=== PATIENT | female | born 1950 | race Caucasian/White ===

== ENCOUNTER 2021-01-16 14:11 | Inpatient (IN) | payer MEDICARE, OTHER ==
[~2021-01-16] VITALS: Ht 170.2 cm; Wt 65.8 kg
[~2021-01-16 14:11] MED LIST: ACET325 PO; ALBU90OI INH; AMLO5 PO; ASPI325 PO; ATIVAN; ATOR10 PO; ATOR40TA PO; AZIT250 PO; AZIT500 PO; BENAML10/2; BENZ1 PO; BENZ100A PO; CEPH500 PO; DOXY100 PO; ESTNOR; ESTNOR PO; FAMO20; FAMO20 PO; GUAPHELA PO; HALO2 PO; HALO5 PO; HYDACE5 PO; HYDHOMSY PO; LAMO100; LAMO100 PO; LAMO25; LAMO25 PO; LETR2.5 PO; LEVFLO500 PO; LITH300C; LOPE2C PO; LORA1; LORA1 PO; LORA2 PO; MECL12.5 PO; MECL25 PO; MELA3 PO; MIRT30 PO; MOME.1TC TOP; MONT5TCH PO; NAPR500 PO; NEW BP MED; NITR100CA PO; Norvasc PO; OMEPRAZOLE; PIOG15; PIOG15 PO; PRAZ1; PRAZ1 PO; PRED20 PO; PRENZ; PROP80ER PO; RAMI1.25; RAMI1.25 PO; RANI150; RESPIRIDAL PO; RISP.25; RISP2; RISP2 PO; RISP4 PO; RISPERDAL; TAMS.4ER PO; TRAZ100 PO; TRAZ50 PO; ZIPR80 PO; [UNRECOGNIZED DRUG - REMARK]; [UNRECOGNIZED DRUG - REMARK]; [UNRECOGNIZED DRUG - REMARK]; [UNRECOGNIZED DRUG - REMARK]; [UNRECOGNIZED DRUG - REMARK]
[2021-01-16 15:12] LABS: BASOPHILS ABSOLUTE AUTO 0.02 K/mm3 (0.00-0.23); BASOPHILS PERCENT AUTO 0 % (0-2); EOSINOPHILS PERCENT AUTO 0 % (0-6); Hematocrit 30.4 % (33.0-51.0); Hemoglobin 9.5 g/dL (11.5-16.0); IMMATURE GRAN ABSOLUTE AUTO 0.02 K/mm3 (0.00-0.10); IMMATURE GRAN PERCENT AUTO 0 % (0-1); LYMPHOCYTES ABSOLUTE AUTO 2.24 K/mm3 (0.84-5.20); LYMPHOCYTES PERCENT AUTO 22 % (21-46); MONOCYTES ABSOLUTE AUTO 0.88 K/mm3 (0.16-1.47); MONOCYTES PERCENT AUTO 8 % (4-13); Mean Corpuscular HGB 29.2 pg (26.0-34.0); Mean Corpuscular HGB Conc 31.3 g/dL (31.5-36.5); Mean Corpuscular Volume 94 fL (80-100); Mean Platelet Volume 10.2 fL (9.1-12.4); NEUTROPHILS ABSOLUTE AUTO 7.27 K/mm3 (1.96-9.15); NEUTROPHILS PERCENT AUTO 70 % (41-73); Platelet Count 267 K/mm3 (150-400); RDW Coefficient Variation 14.8 % (11.7-14.2); RDW Standard Deviation 50.5 fL (35.1-46.3); Red Blood Cell Count 3.25 M/mm3 (3.80-5.20); White Blood Cell Count 10.43 K/mm3 (4.00-11.30)
[2021-01-16 15:24] LABS: Alanine Aminotransfer (ALT/SGP 28 U/L (12-78); Albumin/Globulin Ratio 0.7 (0.8-1.8); Alk Phos 345 U/L (50-136); Anion Gap 8 mmol/L (6-16); Aspartate Aminotrans (AST/SGOT 66 U/L (12-37); Bilirubin, Total 0.7 mg/dL (0.1-1.0); Blood Urea Nitrogen 48 mg/dL (8-24); Bun/Creatinine Ratio 19.7 (12.0-20.0); CO2, Blood 23 mmol/L (21-32); Chloride, Blood 105 mmol/L (98-108); Creatinine, Blood 2.44 mg/dL (0.40-1.00); Ethanol (Alcohol), Blood, Med <3 mg/dL; Globulin, Blood 4.5 g/dL (2.2-4.0); Glomerular Filtration Rate 20 (60-); Glucose, Blood 119 mg/dL (70-99); Potassium, Blood 4.3 mmol/L (3.5-5.5); Salicylate <1.7 mg/dL (2.8-20.0); Sodium, Blood 136 mmol/L (136-145); Total Protein, Blood 7.5 g/dL (6.4-8.2)
[2021-01-16 15:35] LABS: Acetaminophen, Random <2.0 ug/mL (10.0-30.0)
[2021-01-16 16:31] LABS: Source, Urine Catheter
[2021-01-16 16:35] LABS: Appearance, Urine Clear (Clear); Bilirubin, Urine Neg (Neg); Blood, Urine 1+ (Neg); Color, Urine Yellow (P-Yellow); Glucose Qualitative, Urine Neg (Neg); Ketones, Urine 1+ (Neg); Leukocyte Esterase, Urine Neg (Neg); Nitrite, Urine Neg (Neg); Protein, Urine 1+ (Neg); Urobilinogen, Urine NORM (Normal)
[2021-01-16 16:46] LABS: Amorphous Light (0-Heavy); Bacteria Few /hpf; Hyaline Casts 0-2 /lpf (0-2); Red Blood Cells, Urine 0-2 /hpf (0-2); Squamous Epithelial Cells Few /hpf (Few); White Blood Cells, Urine 0-2 /hpf (0-5)
[2021-01-16 17:07] LABS: U Amphetamine Screen Not Detected; U Barbituate Screen Not Detected; U Benzodiazapine Screen DETECTED; U Buprenorphine Screen Not Detected; U Cannabinoids Screen Not Detected; U Cocaine Screen Not Detected; U Methadone Screen Not Detected; U Methamphetamine Screen Not Detected; U Opiates Screen Not Detected; U Oxycodone Screen Not Detected; U Phencyclidine Screen Not Detected; U Propoxyphene Screen Not Detected
[2021-01-17 00:59] LABS: Creatine Kinase MB 4.8 ng/mL (0.0-3.6); Creatine Kinase MB Index 0.5 (0.0-4.0)
[2021-01-17 01:42] LABS: Percent Saturation 20.2 % (15.0-50.0)
[2021-01-17 05:09] LABS: BASOPHILS ABSOLUTE AUTO 0.03 K/mm3 (0.00-0.23); BASOPHILS PERCENT AUTO 0 % (0-2); EOSINOPHILS ABSOLUTE AUTO 0.01 K/mm3 (0.00-0.68); EOSINOPHILS PERCENT AUTO 0 % (0-6); Hematocrit 28.5 % (33.0-51.0); Hemoglobin 8.8 g/dL (11.5-16.0); IMMATURE GRAN ABSOLUTE AUTO 0.05 K/mm3 (0.00-0.10); IMMATURE GRAN PERCENT AUTO 1 % (0-1); LYMPHOCYTES ABSOLUTE AUTO 2.26 K/mm3 (0.84-5.20); LYMPHOCYTES PERCENT AUTO 29 % (21-46); MONOCYTES ABSOLUTE AUTO 0.69 K/mm3 (0.16-1.47); MONOCYTES PERCENT AUTO 9 % (4-13); Mean Corpuscular HGB 29.6 pg (26.0-34.0); Mean Corpuscular HGB Conc 30.9 g/dL (31.5-36.5); Mean Corpuscular Volume 96 fL (80-100); NEUTROPHILS ABSOLUTE AUTO 4.67 K/mm3 (1.96-9.15); NEUTROPHILS PERCENT AUTO 61 % (41-73); Platelet Count 319 K/mm3 (150-400); RDW Coefficient Variation 15.2 % (11.7-14.2); RDW Standard Deviation 52.7 fL (35.1-46.3); RETICULOCYTE COUNT PERCENT 1.77 % (0.50-2.50); Red Blood Cell Count 2.97 M/mm3 (3.80-5.20); White Blood Cell Count 7.71 K/mm3 (4.00-11.30)
[2021-01-17 05:30] LABS: Albumin, Blood 2.4 g/dL (3.4-5.0); Albumin/Globulin Ratio 0.6 (0.8-1.8); Bilirubin, Total 0.6 mg/dL (0.1-1.0); Bun/Creatinine Ratio 18.8 (12.0-20.0); Creatinine, Blood 1.91 mg/dL (0.40-1.00); Globulin, Blood 4.1 g/dL (2.2-4.0); Total Protein, Blood 6.5 g/dL (6.4-8.2)
[2021-01-17] MEDS ORDERED: LORA.5 PO (09:46)
[2021-01-17] MEDS ORDERED: LOMOTIL 2.5-0.1 EACH PO (09:53)
--- NOTE | 2021-01-17 17:36 | NUR ---
1400 RECEIVED PT TO RM 359 VIA MANDI FROM ER. RECEIVED REPORT FROM BERYL CORNELL. PT ADMITTED FOR ACUTE ENCEPHALOPATHY. PER REPORT, PT FROM [facility]ULT [facility]; PLACE UNKNOWN. ADMITTED WITH RHABDO. MULTPLE BRUISES BODY WIDE; BL HIPS AND LEGS ESPECIALLY. PT CURRENTLY NPO, GIVEN 2L NS IN ER. INCONTINENT IN ATTENDS. PT CRIED OUT DURING SLIDE TX; UNSURE IF PAINFUL OR FEARFUL. PT CRYING OUT IN AGITATION A COUPLE OF TIMES SINCE ADMISSION, BUT MOSTLY RESTING QUIETLY SO FAR. PT DID MUMBLE THAT SHE WANTED A DRINK; ORAL CARE DONE AND MOUTH WET WITH SPONGE. INCONTINENT OF URINE. SKIN ON BUTTOCKS AREA CLEAR, NO SKIN BREAKDOWN. JUST SCATTERED BRUISING. BED ALARM ON FOR SAFETY. CALL LT IN REACH.
--- NOTE | 2021-01-17 21:37 | NUR ---
PT HAS LEFT AC THAT IS S/L BUT WILL NOT FLUSH.
[2021-01-18 05:09] LABS: BASOPHILS ABSOLUTE AUTO 0.02 K/mm3 (0.00-0.23); BASOPHILS PERCENT AUTO 0 % (0-2); EOSINOPHILS ABSOLUTE AUTO 0.01 K/mm3 (0.00-0.68); EOSINOPHILS PERCENT AUTO 0 % (0-6); Hematocrit 27.2 % (33.0-51.0); Hemoglobin 8.3 g/dL (11.5-16.0); IMMATURE GRAN ABSOLUTE AUTO 0.03 K/mm3 (0.00-0.10); IMMATURE GRAN PERCENT AUTO 0 % (0-1); LYMPHOCYTES ABSOLUTE AUTO 1.45 K/mm3 (0.84-5.20); LYMPHOCYTES PERCENT AUTO 17 % (21-46); MONOCYTES ABSOLUTE AUTO 0.79 K/mm3 (0.16-1.47); MONOCYTES PERCENT AUTO 9 % (4-13); Mean Corpuscular HGB 29.1 pg (26.0-34.0); Mean Corpuscular HGB Conc 30.5 g/dL (31.5-36.5); Mean Corpuscular Volume 95 fL (80-100); Mean Platelet Volume 9.6 fL (9.1-12.4); NEUTROPHILS ABSOLUTE AUTO 6.15 K/mm3 (1.96-9.15); NEUTROPHILS PERCENT AUTO 73 % (41-73); NRBC ABSOLUTE 0.02 K/mm3 (0.00-0.02); NRBC Auto 0.2 /100 WBC (0.0-0.2); Platelet Count 323 K/mm3 (150-400); RDW Coefficient Variation 15.1 % (11.7-14.2); RDW Standard Deviation 52.7 fL (35.1-46.3); Red Blood Cell Count 2.85 M/mm3 (3.80-5.20); White Blood Cell Count 8.45 K/mm3 (4.00-11.30)
--- NOTE | 2021-01-18 05:09 | NUR ---
SHIFT SUMMARY PT. AOX1 AND YELLING OUT DISTURBING OTHERS MOST OF THIS SHIFT. PT. DELUSIONAL AND HAVING CONVERSATIONS WITH SELF ALL SHIFT. NEW ORDERS OBTAINED FOR ANXIETY AND INCREASED PSYCHOSIS BUT NOT EFFECTIVE. THIS NURSE SAT IN THE ROOM MOST OF THIS SHIFT TO KEEP THE PT CALM SO THAT OTHERS COULD REST. BLADDER SCAN SHOWED LARGE AMOUNTS OF URINE RETENTION. PT SCREAMS IN A HIGH PITCH RANDOMLY AND MEDICATED PER EMAR. THIS NURSE ATTEMPTS TO REDIRECT BUT IS NOT SUCCESSFUL, WILL CONTINUE TO MONITOR UNTIL REPORT IS GIVEN.
[2021-01-18 06:14] LABS: Albumin, Blood 2.4 g/dL (3.4-5.0); Albumin/Globulin Ratio 0.6 (0.8-1.8); Bilirubin, Direct 0.3 mg/dL (0.0-0.3); Bilirubin, Indirect 0.5 mg/dL (0.1-0.7); Bilirubin, Total 0.8 mg/dL (0.1-1.0); Bun/Creatinine Ratio 17.4 (12.0-20.0); Calcium, Blood 10.2 mg/dL (8.5-10.1); Creatinine, Blood 1.72 mg/dL (0.40-1.00); Globulin, Blood 4.2 g/dL (2.2-4.0); Phosphorus, Blood 3.3 mg/dL (2.5-4.9); Potassium, Blood 4.3 mmol/L (3.5-5.5); Total Protein, Blood 6.6 g/dL (6.4-8.2)
[2021-01-18 13:54] LABS: Source, Urine Catheter
[2021-01-18 14:02] LABS: Appearance, Urine Clear (Clear); Bilirubin, Urine Neg (Neg); Blood, Urine Neg (Neg); Color, Urine Yellow (P-Yellow); Glucose Qualitative, Urine Neg (Neg); Ketones, Urine 3+ (Neg); Leukocyte Esterase, Urine Neg (Neg); Nitrite, Urine Neg (Neg); Protein, Urine 1+ (Neg); Specific Gravity, Urine 1.025 (1.003-1.022); Urobilinogen, Urine NORM (Normal)
--- NOTE | 2021-01-18 16:28 | NUR ---
I went and visited the patient this morning in her [facility] room 359. Patient still experiencing altered mental status and calls out for help frequently. Unable to answer any questions about herself. Patient appears agitated. I spoke with her nurse as well who has spoken with the patient's sister and the previous foster home dentures lab technician (Hayley Marquez). Both seem to have conflicting stories. I acquired the patient's APD landscaping manager Krys, from 's [facility] nurse Luz. I called and spoke with Krys, she is well aware of the situation and I have been advised that the patient will need alternative placement, preferably a facility. I believe APS is also involved. I have reached out to Marisol at [facility] who may have a medicaid opening soon for placement and has requested a patient packet regarding the patient. Will email that tomorrow.
--- NOTE | 2021-01-18 17:58 | NUR ---
SHIFT SUMMARY PT HAS BEEN CONFUSED, CALLING OUT, AND INCONSOLABLE TODAY. SHE WAS MEDICATED WITH ZYPREXA TWICE TDAY WHICH HAD LITTLE EFFECT ON HER. A RODRIGUEZ WAS PLACED THIS AFTERNOON FOR RETENTION AND PT HAS LEFT IS ALONE SO FAR. SHE WILL EVENTUALLY BE TRANSFERRED INTO THE BACK BROWNING. SHE WAS SEEN BY PSYCHIATRIC DR TODAY, MEDICATIONS CHANGED, AND NOTE RECORDED. SHE ALSO FAILED HER SWALLOW EVAL AND WAS PLACED ON NPO WITH MEDICATIONS CRUSHED IN PUDDING FOR ADMINISTRATION. WILL CONTINUE TO MONITOR.
--- NOTE | 2021-01-18 20:30 | NUR ---
ASSUMED CARE OF PATAIENT TRANSFERED FROM [facility] FLOOR. PATIENT IN BED RESTING. BED ALARM SET. BED IN LOWEST POSITION. CALL LIGHT IN REACH.
--- NOTE | 2021-01-18 23:58 | NUR ---
PATIENT HAS BEEN YELLING OUT AND HALLUCINATING. GAVE DOSE OF PRN ZYPREXA WITH GOOD RESULTS. PATIENT NOW RESTING.
--- NOTE | 2021-01-19 04:43 | NUR ---
PATIENT IS NOT ORIENTED. SHE YELLS OUT AND IS TALKING TO HERSELF. SHE CRIES OUT FOR HER DADDY. AFTER RECEIVING PRN ZYPREXA SHE RESTED. VITALS REVIEWED. WILL CONTINUE TO MONITOR UNTIL SHIFT CHANGE.
[2021-01-19 05:31] LABS: BASOPHILS ABSOLUTE AUTO 0.02 K/mm3 (0.00-0.23); BASOPHILS PERCENT AUTO 0 % (0-2); EOSINOPHILS ABSOLUTE AUTO 0.01 K/mm3 (0.00-0.68); EOSINOPHILS PERCENT AUTO 0 % (0-6); Hematocrit 28.6 % (33.0-51.0); Hemoglobin 8.5 g/dL (11.5-16.0); IMMATURE GRAN ABSOLUTE AUTO 0.07 K/mm3 (0.00-0.10); IMMATURE GRAN PERCENT AUTO 1 % (0-1); LYMPHOCYTES ABSOLUTE AUTO 1.59 K/mm3 (0.84-5.20); LYMPHOCYTES PERCENT AUTO 17 % (21-46); MONOCYTES ABSOLUTE AUTO 0.82 K/mm3 (0.16-1.47); MONOCYTES PERCENT AUTO 9 % (4-13); Mean Corpuscular HGB 28.2 pg (26.0-34.0); Mean Corpuscular HGB Conc 29.7 g/dL (31.5-36.5); Mean Corpuscular Volume 95 fL (80-100); Mean Platelet Volume 8.8 fL (9.1-12.4); NEUTROPHILS ABSOLUTE AUTO 7.03 K/mm3 (1.96-9.15); NEUTROPHILS PERCENT AUTO 74 % (41-73); NRBC ABSOLUTE 0.02 K/mm3 (0.00-0.02); NRBC Auto 0.2 /100 WBC (0.0-0.2); Platelet Count 370 K/mm3 (150-400); RDW Coefficient Variation 15.4 % (11.7-14.2); RDW Standard Deviation 53.2 fL (35.1-46.3); Red Blood Cell Count 3.01 M/mm3 (3.80-5.20); White Blood Cell Count 9.54 K/mm3 (4.00-11.30)
[2021-01-19 06:40] LABS: Albumin, Blood 2.4 g/dL (3.4-5.0); Albumin/Globulin Ratio 0.7 (0.8-1.8); Bilirubin, Direct 0.3 mg/dL (0.0-0.3); Bilirubin, Indirect 0.5 mg/dL (0.1-0.7); Bilirubin, Total 0.8 mg/dL (0.1-1.0); Bun/Creatinine Ratio 18.9 (12.0-20.0); Calcium, Blood 10.7 mg/dL (8.5-10.1); Creatinine, Blood 1.48 mg/dL (0.40-1.00); Globulin, Blood 3.5 g/dL (2.2-4.0); Phosphorus, Blood 3.4 mg/dL (2.5-4.9); Potassium, Blood 4.6 mmol/L (3.5-5.5); Total Protein, Blood 5.9 g/dL (6.4-8.2)
--- NOTE | 2021-01-19 08:57 | NUR ---
I emailed a patient packet to [facility] and [facility] this morning. I spoke with Marisol at [facility] yesterday and she stated they may have a possible opening soon.
--- NOTE | 2021-01-19 18:28 | NUR ---
SHIFT SUMMARY WHEN ATTEMPTING TO GIVE LOVENOX INJECTION THIS MORNING PT SAID SHE DIDN'T WANT IT AND SHE WOULD BE JUST FINE WITHOUT IT. VERY CLEAR. KNEW HER DATE OF AND SHE WAS IN [place]. APPEARED CALM AND SAID SHE JUST WANTED TO BE LEFT ALONE. SLEPT ON AND OFF MOST OF DAY BUT APPROX 1600 STARTED YELLING AND CALLING OUT OCCASIONALLY WHICH HAS ESCALATED THROUGH THE EVENING. ZYPREXA GIVEN AT 1710 BUT HAS CONTINUED TO YELL OUT WITH NO CHANGE. APPEARS TO BE SPEAKING WITH PEOPLE IN ROOM WHILE SHE IS ALONE. DID GET DISTRESSED WHEN SHE FOUND OUT SHE WASN'T ABLE TO DRINK ANY MILK DUE TO NPO STATUS RECOMMENDED BY MACHINE MADE SHOE UNIT WORKER. REQUIRED FREQUENT REASSURANCES.
--- NOTE | 2021-01-20 05:33 | NUR ---
PATIENT DISLODGED IV. PATIENT WAS VERBALLY AGRESSIVE WHEN STAFF WENT TO CLEAN THE BLOOD FROM HER HANDS AND ATTEMPTED TO CHANGE BEDDING. PATIENT KICKED THE NURSE AND STATED SHE WAS THE DEVIL. PATIENT PROCEEDED TO PRAY WITH THE OTHER OTHER NURSE TO PRAY THE DEVIL OUT THE ROOM. PATIENT ALLOWED ANOTHER STAFF MEMBER TO INITIATE ANOTHER IV. VITALS REVIEWED.
[2021-01-20 06:03] LABS: BASOPHILS ABSOLUTE AUTO 0.03 K/mm3 (0.00-0.23); BASOPHILS PERCENT AUTO 0 % (0-2); EOSINOPHILS ABSOLUTE AUTO 0.02 K/mm3 (0.00-0.68); EOSINOPHILS PERCENT AUTO 0 % (0-6); Hematocrit 25.7 % (33.0-51.0); Hemoglobin 7.7 g/dL (11.5-16.0); IMMATURE GRAN ABSOLUTE AUTO 0.11 K/mm3 (0.00-0.10); IMMATURE GRAN PERCENT AUTO 1 % (0-1); LYMPHOCYTES ABSOLUTE AUTO 1.34 K/mm3 (0.84-5.20); LYMPHOCYTES PERCENT AUTO 16 % (21-46); MONOCYTES ABSOLUTE AUTO 0.76 K/mm3 (0.16-1.47); MONOCYTES PERCENT AUTO 9 % (4-13); Mean Corpuscular HGB 28.8 pg (26.0-34.0); Mean Corpuscular Volume 96 fL (80-100); Mean Platelet Volume 9.1 fL (9.1-12.4); NEUTROPHILS ABSOLUTE AUTO 6.11 K/mm3 (1.96-9.15); NEUTROPHILS PERCENT AUTO 73 % (41-73); NRBC ABSOLUTE 0.02 K/mm3 (0.00-0.02); NRBC Auto 0.2 /100 WBC (0.0-0.2); Platelet Count 344 K/mm3 (150-400); RDW Coefficient Variation 15.5 % (11.7-14.2); RDW Standard Deviation 54.1 fL (35.1-46.3); Red Blood Cell Count 2.67 M/mm3 (3.80-5.20); White Blood Cell Count 8.37 K/mm3 (4.00-11.30)
[2021-01-20 06:50] LABS: Bun/Creatinine Ratio 21.4 (12.0-20.0); Calcium, Blood 10.3 mg/dL (8.5-10.1); Creatinine, Blood 1.31 mg/dL (0.40-1.00); Potassium, Blood 4.4 mmol/L (3.5-5.5)
--- NOTE | 2021-01-20 18:20 | NUR ---
SHIFT SUMMARY: NO ACUTE EVENTS. A&O X 1, CONFUSED AND UNCOOPERATIVE AT TIMES. REFUSED ORAL CARE, SET UP FOR HER TO DO HERSELF, STILL WOULD NOT DO. RODRIGUEZ DRAINING ADEQUATE URINE. SPEECH THERAPY KEPT PT NPO SHE WOULD NOT COOPERATE WITH EVALUATION. HR TACHYCARDIC 100-130 DEPENDING ON ACTIVITY. PULLED IV X 1, REPLACED, IVF INFUSING. NO BEHAVIORAL ISSUES REQUIRING PRN MEDS. HAVING INTERMITTENT A/V HALLUCINATIONS.
[2021-01-20] MEDS ORDERED: MIRTAZAPINE PO (19:49)
[2021-01-20] MEDS ORDERED: Trihexyphenidyl5 MG PO (19:49)
[2021-01-20] MEDS ORDERED: FAMO20 PO (19:50)
[2021-01-20] MEDS ORDERED: ATOR10 PO (19:50)
[2021-01-20] MEDS ORDERED: HALOPERIDOL10 M1 PO (19:51)
[2021-01-20] MEDS ORDERED: FOLI1 PO (19:51)
[2021-01-20] MEDS ORDERED: PROP10 PO (19:52)
[2021-01-20] MEDS ORDERED: LORA.5 PO (19:52)
[2021-01-20] MEDS ORDERED: Lamictal200 MG PO (19:53)
[2021-01-20] MEDS ORDERED: MELATONIN5 M1 PO (19:53)
[2021-01-20] MEDS ORDERED: LIDO700A20 TOP (19:54)
[2021-01-20] MEDS ORDERED: BENADRYL25 MG PO (19:54)
[2021-01-20] MEDS ORDERED: SENNA LAXATIVE8.6 MG PO (19:54)
[2021-01-20] MEDS ORDERED: [UNRECOGNIZED DRUG - OTHER] TOP (19:54)
--- NOTE | 2021-01-21 06:07 | NUR ---
PARIENT RESTED WELL OVERNIGHT AND REQUIRED NO PRN MEDICATION FOR AGGITATION. WAS COOPERATIVE WITH CARE. VITALS REVIEWED,
[2021-01-21 06:57] LABS: Bun/Creatinine Ratio 20.8 (12.0-20.0); C-REACTIVE PROTEIN, EXT RANGE 13.5 mg/dL (0.000-0.300); Calcium, Blood 9.9 mg/dL (8.5-10.1); Creatinine, Blood 1.25 mg/dL (0.40-1.00); Potassium, Blood 4.4 mmol/L (3.5-5.5)
[2021-01-21 07:02] LABS: Percent Saturation 28.6 % (15.0-50.0)
[2021-01-21 10:25] LABS: BASOPHILS ABSOLUTE AUTO 0.02 K/mm3 (0.00-0.23); BASOPHILS PERCENT AUTO 0 % (0-2); EOSINOPHILS ABSOLUTE AUTO 0.02 K/mm3 (0.00-0.68); EOSINOPHILS PERCENT AUTO 0 % (0-6); Hemoglobin 7.5 g/dL (11.5-16.0); IMMATURE GRAN ABSOLUTE AUTO 0.11 K/mm3 (0.00-0.10); IMMATURE GRAN PERCENT AUTO 1 % (0-1); LYMPHOCYTES ABSOLUTE AUTO 1.82 K/mm3 (0.84-5.20); LYMPHOCYTES PERCENT AUTO 22 % (21-46); MONOCYTES ABSOLUTE AUTO 0.71 K/mm3 (0.16-1.47); MONOCYTES PERCENT AUTO 9 % (4-13); Mean Corpuscular HGB 28.8 pg (26.0-34.0); Mean Corpuscular Volume 96 fL (80-100); Mean Platelet Volume 9.8 fL (9.1-12.4); NEUTROPHILS PERCENT AUTO 67 % (41-73); NRBC ABSOLUTE 0.03 K/mm3 (0.00-0.02); NRBC Auto 0.4 /100 WBC (0.0-0.2); Platelet Count 335 K/mm3 (150-400); RDW Coefficient Variation 15.3 % (11.7-14.2); RDW Standard Deviation 53.4 fL (35.1-46.3); White Blood Cell Count 8.18 K/mm3 (4.00-11.30)
--- NOTE | 2021-01-21 17:56 | NUR ---
PT AWAKE, ALERT AND ORIENTED 3, HAS BEEN SAD AND CRYING OFF AND ON THIS SHIFT, CALLING OUT AT TIMES FOR HER MOM AND DAY, SISTER AND OTHERS. SHE HAS BEEN MOSTLY COOPERATIVE WITH CARE TODAY, S.T. CONDUCTED SWALLOW EVAL, PT IS NOW ON A REGULAR DIET WITH THIN LIQUIDS. RODRIGUEZ IS PATENT AND DRAINING. CALL SEXTON IN REACH, WILL CONTINUE TO MONITOR AND REPORT TO ONCOMING RN
[2021-01-22 04:51] LABS: BASOPHILS ABSOLUTE AUTO 0.03 K/mm3 (0.00-0.23); BASOPHILS PERCENT AUTO 0 % (0-2); EOSINOPHILS ABSOLUTE AUTO 0.02 K/mm3 (0.00-0.68); EOSINOPHILS PERCENT AUTO 0 % (0-6); Hematocrit 25.4 % (33.0-51.0); Hemoglobin 7.6 g/dL (11.5-16.0); IMMATURE GRAN ABSOLUTE AUTO 0.18 K/mm3 (0.00-0.10); IMMATURE GRAN PERCENT AUTO 2 % (0-1); LYMPHOCYTES ABSOLUTE AUTO 2.24 K/mm3 (0.84-5.20); LYMPHOCYTES PERCENT AUTO 25 % (21-46); MONOCYTES ABSOLUTE AUTO 0.69 K/mm3 (0.16-1.47); MONOCYTES PERCENT AUTO 8 % (4-13); Mean Corpuscular HGB 28.3 pg (26.0-34.0); Mean Corpuscular HGB Conc 29.9 g/dL (31.5-36.5); Mean Corpuscular Volume 94 fL (80-100); Mean Platelet Volume 8.6 fL (9.1-12.4); NEUTROPHILS ABSOLUTE AUTO 5.85 K/mm3 (1.96-9.15); NEUTROPHILS PERCENT AUTO 65 % (41-73); NRBC ABSOLUTE 0.05 K/mm3 (0.00-0.02); NRBC Auto 0.6 /100 WBC (0.0-0.2); Platelet Count 300 K/mm3 (150-400); RDW Coefficient Variation 15.1 % (11.7-14.2); RDW Standard Deviation 52.4 fL (35.1-46.3); Red Blood Cell Count 2.69 M/mm3 (3.80-5.20); White Blood Cell Count 9.01 K/mm3 (4.00-11.30)
[2021-01-22 05:44] LABS: Bun/Creatinine Ratio 21.4 (12.0-20.0); Calcium, Blood 10.2 mg/dL (8.5-10.1); Creatinine, Blood 1.12 mg/dL (0.40-1.00); Potassium, Blood 4.2 mmol/L (3.5-5.5)
--- NOTE | 2021-01-22 06:07 | NUR ---
ZOEY REMAINED STABLE TRHOUGHOUT THE DRUG SAFETY SCIENTIST. HAD A RESTFUL NIGHT
--- NOTE | 2021-01-22 09:46 | NUR ---
Pt received INJ per Radiation Therapy. Pt remains AAOX3 no complain voiced,will continue to monitor patient. Bed in lowest position. Call light in reach.
--- NOTE | 2021-01-23 04:30 | NUR ---
ZOEY REMAINED STABLE TROUGHOUT THE SHIFT. SUNNY HELPED HER SHOWER. SHE PULLED OUT HER IV IN THE MIDDLE OF THE NIGHT. A NEW ONE WAS PLACED IN HER RIGHT FOREARM.
[2021-01-23 04:39] LABS: BASOPHILS ABSOLUTE AUTO 0.02 K/mm3 (0.00-0.23); BASOPHILS PERCENT AUTO 0 % (0-2); EOSINOPHILS ABSOLUTE AUTO 0.02 K/mm3 (0.00-0.68); EOSINOPHILS PERCENT AUTO 0 % (0-6); Hematocrit 24.4 % (33.0-51.0); Hemoglobin 7.4 g/dL (11.5-16.0); IMMATURE GRAN ABSOLUTE AUTO 0.22 K/mm3 (0.00-0.10); IMMATURE GRAN PERCENT AUTO 3 % (0-1); LYMPHOCYTES ABSOLUTE AUTO 1.81 K/mm3 (0.84-5.20); LYMPHOCYTES PERCENT AUTO 25 % (21-46); MONOCYTES ABSOLUTE AUTO 0.68 K/mm3 (0.16-1.47); MONOCYTES PERCENT AUTO 10 % (4-13); Mean Corpuscular HGB 28.8 pg (26.0-34.0); Mean Corpuscular HGB Conc 30.3 g/dL (31.5-36.5); Mean Corpuscular Volume 95 fL (80-100); NEUTROPHILS ABSOLUTE AUTO 4.41 K/mm3 (1.96-9.15); NEUTROPHILS PERCENT AUTO 62 % (41-73); NRBC ABSOLUTE 0.05 K/mm3 (0.00-0.02); NRBC Auto 0.7 /100 WBC (0.0-0.2); Platelet Count 272 K/mm3 (150-400); Red Blood Cell Count 2.57 M/mm3 (3.80-5.20); White Blood Cell Count 7.16 K/mm3 (4.00-11.30)
[2021-01-23 05:02] LABS: Bun/Creatinine Ratio 19.5 (12.0-20.0); Calcium, Blood 10.3 mg/dL (8.5-10.1); Creatinine, Blood 1.18 mg/dL (0.40-1.00); Potassium, Blood 3.6 mmol/L (3.5-5.5)
--- NOTE | 2021-01-23 19:23 | NUR ---
PT AAO X 2 ABLE TO MAKE NEEDS KNOWN. IV FLUID IN PROGRESS, ACCESS TO RA, PATENT AND INTACT. ASSISTED WITH ADL'S NEEDED. BEDIN LOWEST POSITION. CALL LIGHT IN REACH.
[2021-01-24 04:45] LABS: BASOPHILS ABSOLUTE AUTO 0.02 K/mm3 (0.00-0.23); BASOPHILS PERCENT AUTO 0 % (0-2); EOSINOPHILS ABSOLUTE AUTO 0.02 K/mm3 (0.00-0.68); EOSINOPHILS PERCENT AUTO 0 % (0-6); Hematocrit 24.6 % (33.0-51.0); Hemoglobin 7.4 g/dL (11.5-16.0); IMMATURE GRAN ABSOLUTE AUTO 0.27 K/mm3 (0.00-0.10); IMMATURE GRAN PERCENT AUTO 3 % (0-1); LYMPHOCYTES PERCENT AUTO 25 % (21-46); MONOCYTES ABSOLUTE AUTO 0.71 K/mm3 (0.16-1.47); MONOCYTES PERCENT AUTO 9 % (4-13); Mean Corpuscular HGB 28.7 pg (26.0-34.0); Mean Corpuscular HGB Conc 30.1 g/dL (31.5-36.5); Mean Corpuscular Volume 95 fL (80-100); Mean Platelet Volume 9.2 fL (9.1-12.4); NEUTROPHILS ABSOLUTE AUTO 5.09 K/mm3 (1.96-9.15); NEUTROPHILS PERCENT AUTO 63 % (41-73); NRBC ABSOLUTE 0.08 K/mm3 (0.00-0.02); Platelet Count 283 K/mm3 (150-400); RDW Coefficient Variation 15.2 % (11.7-14.2); RDW Standard Deviation 51.8 fL (35.1-46.3); Red Blood Cell Count 2.58 M/mm3 (3.80-5.20); White Blood Cell Count 8.11 K/mm3 (4.00-11.30)
--- NOTE | 2021-01-24 04:48 | NUR ---
ZOEY REMAINED STABLE THROUGHOUT THE TECHNICAL SUPPORT INTERNSHIP. WAS COOPERATIVE, HAD A RESTFUL NIGHT
[2021-01-24 05:12] LABS: Bun/Creatinine Ratio 18.9 (12.0-20.0); Calcium, Blood 10.1 mg/dL (8.5-10.1); Creatinine, Blood 1.11 mg/dL (0.40-1.00); Potassium, Blood 3.6 mmol/L (3.5-5.5)
--- NOTE | 2021-01-24 18:55 | NUR ---
PT AAOX 2, ABLE TO MAKE NEEDS KNOWN. IV FLUID INFUSING TO THE EDUARD, PATENT AND INTACT. CLAEN AND DRY DRESSING IN PLACE. NO SWELLNG OR REDNESS NOTED. STOOL SPECIMEN COLLECTED. ASSITED WITH ADL'S NEEDED. ENCOURAGE FLUD INTAKE. MD VISITED PATIENT. PT ASKED TO CALL SISTER LUCIUS ATTEMPTS X 4 , NO ANSWER AND BUSY TONE. BED IN LOWEST POSITION. CALL LIGHT IN REACH.
--- NOTE | 2021-01-25 05:51 | NUR ---
PATIENT WAS ALERT AND ORIENTED X2, STABLE VITAL SIGNS, NO ACUTE CHANGES. PATIENT DEINIED ANY PAIN. PATIENT ONLY REQUESTED HELP TO USE THE BEDIDE COMMODE. CALL LIGHT WITHIN REACH AND BED IN THE LOWEST POSITION.
[2021-01-25 12:53] LABS: Stool Occult Bld Immuno 1 Negative (NEGATIVE)
--- NOTE | 2021-01-25 17:30 | NUR ---
SHIFT SUMMARY NO ACUTE CHANGES TO PRESENT THIS SHIFT. PT AWAKE AT START OF SHIFT. UP TO BSC FOR BM. RODRIGUEZ TO GRAVITY DRAINING CL YELLOW. RODRIGUEZ TO BE D/C'D PT HAS BEEN CONTINENT OF BOWEL, NOW THAT SHE IS MORE ALERT. SHE IS CONFUSED AND DISORIENTED, BUT ABLE TO MAKE NEEDS KNOWN BY YELLING OUT. PT ABLE TO FEED HERSELF. BRUISING TO BL HIPS MUCH IMPROVED FROM ADMISSION. NO SKIN BREAKDOWN ON BOTTOM. PT C/O PAIN/IRRITATION FROM HEMORROIDS WITH THE LOOSE STOOLS; DR CASAREZ NOTIFIED. TOOL BUILDER WORKING ON D/C PLANNING. BED ALARM ON FOR SAFETY. CALL LT IN REACH.
--- NOTE | 2021-01-25 19:57 | NUR ---
1650 MICHAEL RUSSO D/C'D WNL'S. UNABLE TO CHART IN I&O'S
--- NOTE | 2021-01-26 06:40 | NUR ---
SHIFT SUMMARY AOX2-SELF, PLACE. UNAWARE SITUATION & DATE. FORGETFUL & CONFUSED. HAS BEEN USING CALL LIGHT INTERMITTENTLY OR CALLS OUT WHEN SHE HAS NEEDS. PLEASENT & COOPERATIVE. VSS. REPORTED DISCOMFORT & PAIN WHEN TRYING TO HAVE BM, HAS HEMORRHOIDS, DR GRIFFITH ORDERED PREPARATION H. REPORTED BACK PAIN 8 ALLOVER, HOWEVER ONCE TYLENOL ORDERED PT DENIED ANY FURTHER DISCOMFORT. HAD MED BROWM FIRM BM THIS SHIFT. HADNT VOIDED SINCE RODRIGUEZ REMOVED YESTERDAY ON DAY SHIFT AROUND 1650, BLADDER SCAN THIS AM SHOWED ONLY 522ML, HAD PT GET UP TO BSC & SHE WAS ABLE TO VOID 500ML. AWAITING SAFE DC PLAN. BED ALARM & CALL LIGHT IN PLACE. WCTM.
--- NOTE | 2021-01-26 16:42 | NUR ---
PT IS A/OX2, PLEASANT AND COOPERATIVE. THE PT IS UP WITH MINIMAL ASSIST USEING THE FWW TO THE BATHROOM TODAY. THE PT DENIED ANY PAIN, NAUSEA OR SOB. PT APPEARS TO BE BREATHING EASILY ON RA AT THIS TIME. PT HAS HAD A POOR APETITE, HOWEVER HAS BEEN DRINKING ENSURES WITH EACH MEAL. THE PT HAS BEEN AND WAS ENCOURAGED TO DRINK MORE WATER. CALL LIGHT IN REACH. WILL CONTINUE TO MONITOR AND ASSESS FOR CHANGES
--- NOTE | 2021-01-27 04:09 | NUR ---
SHIFT SUMMARY: ZOEY REMAINED STABLE THROUGHOUT THE SHIFT, SLEPT PROBABLY FOUR HOURS. GOT UP TO THE BATHROOM USING THE WALKER WITH ASSISTANCE A COUPLE OF TIMES. WAS COOPERATIVE AND PLEASANT.
--- NOTE | 2021-01-27 16:26 | NUR ---
SHIFT SUMMARY PATIENT IS ALERT AND ORIENTED TO SELF ONLY. PATIENT HAS BEEN PLEASENT AND COOPERATIVE WITH CARE. PATIENT HAS HAD POOR APPETITE TODAY. PATIENT IS A ONE PERSON ASSIST TO BATHROOM USING GAITBELT AND FWW. VITAL SIGNS REVIEWED. NO ACUTE EVENTS THIS SHIFT. WILL MONITOR UNTIL SHIFT CHANGE.
[2021-01-28 05:43] LABS: BASOPHILS ABSOLUTE AUTO 0.02 K/mm3 (0.00-0.23); BASOPHILS PERCENT AUTO 0 % (0-2); EOSINOPHILS ABSOLUTE AUTO 0.01 K/mm3 (0.00-0.68); EOSINOPHILS PERCENT AUTO 0 % (0-6); Hematocrit 24.9 % (33.0-51.0); Hemoglobin 7.6 g/dL (11.5-16.0); IMMATURE GRAN ABSOLUTE AUTO 0.18 K/mm3 (0.00-0.10); IMMATURE GRAN PERCENT AUTO 2 % (0-1); LYMPHOCYTES ABSOLUTE AUTO 1.89 K/mm3 (0.84-5.20); LYMPHOCYTES PERCENT AUTO 16 % (21-46); MONOCYTES ABSOLUTE AUTO 1.01 K/mm3 (0.16-1.47); MONOCYTES PERCENT AUTO 9 % (4-13); Mean Corpuscular HGB 28.8 pg (26.0-34.0); Mean Corpuscular HGB Conc 30.5 g/dL (31.5-36.5); Mean Corpuscular Volume 94 fL (80-100); Mean Platelet Volume 9.6 fL (9.1-12.4); NEUTROPHILS PERCENT AUTO 74 % (41-73); NRBC ABSOLUTE 0.12 K/mm3 (0.00-0.02); Platelet Count 320 K/mm3 (150-400); RDW Coefficient Variation 15.5 % (11.7-14.2); RDW Standard Deviation 52.6 fL (35.1-46.3); Red Blood Cell Count 2.64 M/mm3 (3.80-5.20); White Blood Cell Count 11.91 K/mm3 (4.00-11.30)
--- NOTE | 2021-01-28 06:50 | NUR ---
NO CHANGES FOR ZOEY OVERNIGHT. VERY FLAT AFFECT, POOR APPETITE. SHE CALLS LOTS, THEN HAS NO RECOLLECTION OF WHY SHE CALLED. IT APPEARS SHE LIKES THE COMPANY. SHE IS ALERT TO SELF, AND I BELIEVE PLACE. NO COMPLAINTS OF PAIN OTHER THAT A "LITTLE HEADACHE" WHICH RESOLVED WITH TYLENOL AT HS.
[2021-01-28 06:51] LABS: Bun/Creatinine Ratio 17.8 (12.0-20.0); Calcium, Blood 10.2 mg/dL (8.5-10.1); Creatinine, Blood 1.35 mg/dL (0.40-1.00); Potassium, Blood 4.4 mmol/L (3.5-5.5)
--- NOTE | 2021-01-28 17:22 | NUR ---
PATIENT IS ALERT AND DISORIENTED. SHE YELLS OUT AT TIMES. FOLLOWS DIRECTIONS. SHE IS IMPULSIVE. SHOWERED TODAY. 1PA TO THE BATHROOM. RIGHT BREAST MASTECTOMY. INCREASE IN WBC, DR. CASAREZ AWARE. WILL CONTINUE TO MONITOR
--- NOTE | 2021-01-29 06:08 | NUR ---
ZOEY HAD ANOTHER QUIET NIGHT. NO COMPLAINTS OF DISCOMFORT OR PAIN. SLEPT WELL, AND ACTUALLY WOKE UP SINGING THIS MORNING. NOTED, I ASKED HER SPECIFICALLY ASKED HER IF SHE WAS HAVING ANY PAIN IN HER LOW BACK AND/OR HIPS, AND SHE SAID NO. APPARENTLY, YESTERDAY, ZOEY REALLY DID NOT WANT TO GET OOB AT ALL.
[2021-01-29 07:39] LABS: BASOPHILS ABSOLUTE AUTO 0.02 K/mm3 (0.00-0.23); BASOPHILS PERCENT AUTO 0 % (0-2); EOSINOPHILS ABSOLUTE AUTO 0.01 K/mm3 (0.00-0.68); EOSINOPHILS PERCENT AUTO 0 % (0-6); Hematocrit 26.6 % (33.0-51.0); Hemoglobin 8.1 g/dL (11.5-16.0); IMMATURE GRAN ABSOLUTE AUTO 0.17 K/mm3 (0.00-0.10); IMMATURE GRAN PERCENT AUTO 2 % (0-1); LYMPHOCYTES ABSOLUTE AUTO 2.29 K/mm3 (0.84-5.20); LYMPHOCYTES PERCENT AUTO 21 % (21-46); MONOCYTES ABSOLUTE AUTO 0.91 K/mm3 (0.16-1.47); MONOCYTES PERCENT AUTO 8 % (4-13); Mean Corpuscular HGB 28.8 pg (26.0-34.0); Mean Corpuscular HGB Conc 30.5 g/dL (31.5-36.5); Mean Corpuscular Volume 95 fL (80-100); Mean Platelet Volume 9.3 fL (9.1-12.4); NEUTROPHILS ABSOLUTE AUTO 7.63 K/mm3 (1.96-9.15); NEUTROPHILS PERCENT AUTO 69 % (41-73); NRBC ABSOLUTE 0.11 K/mm3 (0.00-0.02); Platelet Count 349 K/mm3 (150-400); RDW Coefficient Variation 15.7 % (11.7-14.2); RDW Standard Deviation 53.8 fL (35.1-46.3); Red Blood Cell Count 2.81 M/mm3 (3.80-5.20); White Blood Cell Count 11.03 K/mm3 (4.00-11.30)
[2021-01-29 08:02] LABS: Bun/Creatinine Ratio 18.5 (12.0-20.0); Calcium, Blood 10.5 mg/dL (8.5-10.1); Creatinine, Blood 1.57 mg/dL (0.40-1.00); Potassium, Blood 4.4 mmol/L (3.5-5.5)
--- NOTE | 2021-01-29 17:19 | NUR ---
SHIFT SUMMARY PT IS AAO TO SELF AND SITUATION. PLEASANTLY CONFUSED, REDIRECTABLE. FORGETFUL. COOPERATIVE TO CARE. PT HAS A FLAT AFFECT. NO C/O PAIN OR ANY DISCOMFORT THIS SHIFT. PT REQUIRES 1P ASSIST WITH FWW TO BATHROOM. PT OFTEN YELLS, NOTED TO BE SPEAKING TO SELF IN ROOM AT TIMES. BED AT LOWEST POSITION W/ ALARM ON. CALL LIGHT WITHIN REACH.
--- NOTE | 2021-01-30 05:52 | NUR ---
DEVELOPMENT ENGINEER SUMMARY ADMITTED FOR ALTERED MENTAL STATUS. PT IS FULL CODE. THERE IS AN APS CASE OPEN FOR GUARDIANSHIP. PT WAS VERY DISTRAUGHT AT THE START OF THE SHIFT, CRYING OUT FREQUENTLY AND SOBBING. PT WAS CONSOLED AND STATED THAT "I HAVEN'T SEEN MY SON IN SO MANY YEARS AND I MISS HIM." PT CONTINUED TO SOB FOR AROUND TWO HOURS, REFUSING NIGHT SEROQUEL AT THAT TIME. I CONVINCED THE PT TO TAKE HER SEROQUEL AROUND 2200 AND PT HAS BEEN RESTING THROUGHOUT THE SHIFT.
[2021-01-30 07:47] LABS: Bun/Creatinine Ratio 18.9 (12.0-20.0); Creatinine, Blood 1.75 mg/dL (0.40-1.00); Potassium, Blood 4.1 mmol/L (3.5-5.5)
--- NOTE | 2021-01-30 18:12 | NUR ---
SHIFT SUMMARY PATIENT IS AAOX1 ONLY. AWARE OF PERSON AND AT HOSPITAL AND REORIENTED TO TIME. PLEASANTLY CONFUSED AND ABLE TO BE REDIRECTED. SHE IS VERY EMOTIONAL ON TODAY, CRYING ON AND OFF AND STATES DOES NOT HAVE A APPETITE TO EAT MEALS EVEN AFTER ENCOURAGEMENT. ABLE TO AMBULATE TO BR WITH FWW AND STAND BY ASSIST. CONTINENT OF B/B. VSS. NAD NOTED. CALL LIGHT WITHIN REACH. WILL CONTINUE TO MONITOR IN CARE.
[2021-01-31 06:11] LABS: Bun/Creatinine Ratio 18.4 (12.0-20.0); Calcium, Blood 11.2 mg/dL (8.5-10.1); Creatinine, Blood 1.79 mg/dL (0.40-1.00); Potassium, Blood 4.5 mmol/L (3.5-5.5)
--- NOTE | 2021-01-31 06:17 | NUR ---
SHIFT SUMMARY ZOEY IS PLEASANTLY CONFUSED, SINGING AT NIGHT AND CALLING OUT FOR NURSE RATHER THAN USING THE CALL LIGHT. SLEPT WELL INTERMITTENTLY. ROO0M AIR. IV IN LEFT FORE ARM BECAME SWOLLEN, SO THAT WAS DC'D AND A NEW IV INSERTED INTO LEFT HAND. NO BLOOD PRESSURES ON RIGHT ARM. SLOW TO RESPOND AND FORM SENTENCES, BUT ABLE TO MAKE NEEDS KNOWN WHEN CAREGIVERS ARE PATIENT. REQUIRES REDIRECTION, REORIENTATION AND REPEATED EXPLANATIONS OF ALL CARE PROVIDED. BED IN LOWEST POSITION.
--- NOTE | 2021-01-31 18:17 | NUR ---
PT AOX3 WITH CONFUSION. NO DISTRESS NOTED AT THIS TIME. PT TREATED FOR NAUSEA X1. CALL LIGHT WITHIN REACH AND BED ALARM IN PLACE. WILL CONTINUE TO MOITOR.
--- NOTE | 2021-02-01 04:30 | NUR ---
SHIFT SUMMARY ZOEY HAS MILD CONFUSION, BUT IS PLEASANT WITH STAFF AND COOPERATIVE WITH CARE. IV ACCESS IN LEFT HAND, INFUSING NS AT 100ML/HR. ROOM AIR. NO BP ON RIGHT ARM DUE TO HX OF BREAST CANCER. GUARDIANSHIP PENDING, APS CASE IS OPEN FROM BRUISING THAT WAS PRESENT ON ADMISSION. PT WITH OVERGROWN, THICKENED TOE NAILS THAT WOULD BENEFIT FROM PODIATRY CONSULT. CONTINENT/INCONTINENT IN ATTENDS, WILL CALL OUT "NURSE!" WHEN SHE NEEDS TO USE THE BATHROOM OR OTHER NEED. AMBULATES WITH FWW, GAIT BELT AND SBA FROM 1 STAFF TO BSC. BED ALARM ON, IN LOWEST POSITION.
[2021-02-01 05:58] LABS: Albumin, Blood 2.3 g/dL (3.4-5.0); Anion Gap 8 mmol/L (6-16); Blood Urea Nitrogen 29 mg/dL (8-24); Bun/Creatinine Ratio 15.1 (12.0-20.0); CO2, Blood 23 mmol/L (21-32); Calcium, Blood 11.7 mg/dL (8.5-10.1); Chloride, Blood 108 mmol/L (98-108); Creatinine, Blood 1.92 mg/dL (0.40-1.00); Glomerular Filtration Rate 26 (60-); Glucose, Blood 109 mg/dL (70-99); Magnesium, Blood 2.2 mg/dL (1.6-2.4); Phosphorus, Blood 4.5 mg/dL (2.5-4.9); Potassium, Blood 4.3 mmol/L (3.5-5.5); Sodium, Blood 139 mmol/L (136-145)
[2021-02-01 06:45] LABS: BASOPHILS ABSOLUTE AUTO 0.02 K/mm3 (0.00-0.23); BASOPHILS PERCENT AUTO 0 % (0-2); EOSINOPHILS ABSOLUTE AUTO 0.02 K/mm3 (0.00-0.68); EOSINOPHILS PERCENT AUTO 0 % (0-6); Hematocrit 25.1 % (33.0-51.0); Hemoglobin 7.5 g/dL (11.5-16.0); IMMATURE GRAN ABSOLUTE AUTO 0.13 K/mm3 (0.00-0.10); IMMATURE GRAN PERCENT AUTO 1 % (0-1); LYMPHOCYTES ABSOLUTE AUTO 1.73 K/mm3 (0.84-5.20); LYMPHOCYTES PERCENT AUTO 18 % (21-46); MONOCYTES ABSOLUTE AUTO 0.73 K/mm3 (0.16-1.47); MONOCYTES PERCENT AUTO 8 % (4-13); Mean Corpuscular HGB 28.6 pg (26.0-34.0); Mean Corpuscular HGB Conc 29.9 g/dL (31.5-36.5); Mean Corpuscular Volume 96 fL (80-100); Mean Platelet Volume 8.9 fL (9.1-12.4); NEUTROPHILS ABSOLUTE AUTO 7.13 K/mm3 (1.96-9.15); NEUTROPHILS PERCENT AUTO 73 % (41-73); NRBC ABSOLUTE 0.02 K/mm3 (0.00-0.02); NRBC Auto 0.2 /100 WBC (0.0-0.2); Platelet Count 383 K/mm3 (150-400); RDW Coefficient Variation 15.3 % (11.7-14.2); RDW Standard Deviation 53.3 fL (35.1-46.3); Red Blood Cell Count 2.62 M/mm3 (3.80-5.20); White Blood Cell Count 9.76 K/mm3 (4.00-11.30)
--- NOTE | 2021-02-01 11:00 | NUR ---
ASSUMED CARE OF PT. LAYING IN BED QUIET AND ANSWERING QUESTIONS APPROPRIATELY.
--- NOTE | 2021-02-01 11:16 | NUR ---
SUMMARY: NO ACUTE CHANGES THIS AM. PT PLEASANT AND COOPERATIVE. REPORT GIVEN TO KRAIG MALDONADO TO ASSUME CARE FOR REMAINDER OF SHIFT.
--- NOTE | 2021-02-01 16:35 | NUR ---
SHIFT SUMMARY PT STARTED VOMITTING AFTER EATING A FEW BITES OF LUNCH. MOSTLY THICK MUCOUSY AND CLEAR. STATES SHE DOESN'T EAT WELL BECAUSE WHEN SHE SWALLOWS HER FOOD IT STICKS AND THEN COMES BACK UP. DENIES PAIN OR DISTRESS. IV FLUIDS IMFUSING WITH NO PROBLEM.
[2021-02-01 21:33] LABS: Source, Urine Clean Catch
[2021-02-01 21:38] LABS: Bilirubin, Urine Neg (Neg); Blood, Urine 1+ (Neg); Glucose Qualitative, Urine Neg (Neg); Ketones, Urine Neg (Neg); Leukocyte Esterase, Urine 3+ (Neg); Nitrite, Urine Pos (Neg); Protein, Urine 1+ (Neg); Urobilinogen, Urine NORM (Normal)
[2021-02-01 21:48] LABS: Appearance, Urine Hazy (Clear); Bacteria Many /hpf; Color, Urine Pale Yellow (P-Yellow); Red Blood Cells, Urine Not Seen /hpf (0-2); Squamous Epithelial Cells Few /hpf (Few); White Blood Cells, Urine TNTC /hpf (0-5)
--- NOTE | 2021-02-01 22:50 | NUR ---
Pt urinalysis came back positive so call to was made to inquire about putting in an order for culture. Dr. Kimble did not order a culture but advised a one-time dose of Ceftriaxone 1G. Pt has allergy to penicillin so pharmacy was and contacted and they advised of a possible adverse reaction so order was held pending contact w/ pt's reg tomorrow morning.
--- NOTE | 2021-02-02 05:43 | NUR ---
SHIFT SUMMARY 43 YR f ADMITTED ON 01/16/21 FOR ALTERED MENTAL STATUS. FULL CODE. HX OF SCHIZO AND DEMENTIA. PT WAS COOPERATIVE BUT CALLS OUT FOR THE NURSE RATHER THAN USING HER CALL LIGHT. SHE IS CHILD LIKE IN HER MANNERISMS, BUT IS ABLE TO FOLLOW INSTRUCTIONS. SHE HAD A URINALYSIS TODAY THAT CAME BACK POSITIVE. a CALL WAS MADE TO dR. FINE INQUIRING TO WHETHER A CULTURE OF THE URINE SHOULD BE ORDERED. IT WAS NOT. ABX WERE OFFERED BUT DUE TO A POSSIBLE SENSITIVITY ISSUE IT WAS DECIDED THAT IT WOULD BE BEST TO TALK WITH PT'S PRIMARY DOCTOR BEFORE ADMINISTERING ABX.
--- NOTE | 2021-02-02 11:01 | NUR ---
UTI/ABX SENSITIVITY PT LAB SHOWED POSITIVE FOR UTI ON PEDIATRIC NEUROLOGIST. PER REPORT FROM PEDIATRIC NEUROLOGIST NURSE, ABX RX BY NIGHT MD WERE CONTRAINDICATED BY PHARMACY WITH PT ALLERGY TO SOME ABX. PER PHARMACY PT SHOWS HIGH SENSITIVITY TO ABX WITH A LIKELY REACTION TO RX ABX. ABX HELD PER PHARMACY ON PEDIATRIC NEUROLOGIST. SPOKE THIS AM WITH DR RASHID REGARDING UTI/ABX. MD STATES HE IS UNSURE AND WOULD LIKE TO SPEAK WITH DR WEINBERG FIRST HE IS UNDER THE IMPRESSION THE PT IS TO GO ON HOSPICE. WAITING FOR WORD FROM AT THIS TIME.
[2021-02-02 13:09] LABS: A/G RATIO 0.9 (0.7-1.7); ALBUMIN 2.5 g/dL (2.9-4.4); ALPHA-1-GLOBULIN 0.5 g/dL (0.0-0.4); ALPHA-2-GLOBULIN 0.8 g/dL (0.4-1.0); GAMMA GLOBULIN 0.8 g/dL (0.4-1.8); GLOBULIN, TOTAL 3.1 g/dL (2.2-3.9); IMMUNOGLOBULIN A, QN, SERUM 328 mg/dL (87-352); IMMUNOGLOBULIN G, QN, SERUM 784 mg/dL (586-1602); IMMUNOGLOBULIN M, QN, SERUM 52 mg/dL (26-217); M-SPIKE Not Observed g/dL (Not Observed); PROTEIN, TOTAL, SERUM 5.6 g/dL (6.0-8.5)
--- NOTE | 2021-02-02 15:36 | NUR ---
ABX FOR UTI SPOKE WITH DR RASHID AGAIN REGARDING UTI WITH ABX (PENICILLIN) SENSITIVITY/ALLERGY. DR RASHID STATES HE WILL LOOK AT HER CHART AND GET A NEW ABX ORDER FOR HER.
--- NOTE | 2021-02-02 17:27 | NUR ---
DAY SHIFT SUMMARY PT A/O X2, CONFUSED. DOES NOT PROPERLY USE CALL LIGHT, INSTEAD CALLS OUT FOR NURSE. WAITING FOR PLACEMENT, CALL LIGHT IS WITHIN REACH OF PT AND FREQUENT ROUNDING DONE ON PT DUE TO IMPROPER USE OF CALL LIGHT. SEE PREVIOUS NOTES ON CONVERSATIONS WITH DR RASHID REGARDING UTI/ABX. PT HAS SHOWN CONFUSION TODAY WITH CALLLING OUT FOR HER MOTHER. PT IS A 1 ASSIST TO THE BSC WITH WALKER.
--- NOTE | 2021-02-03 05:56 | NUR ---
SHIFT SUMMARY: AOX2, WITHDRAWN, SLOW TO RESPOND, FLAT AFFECT. DENIES ANY PAIN OR DISCOMFORT. EMOTIONAL AT TIMES. NEW IV PLACED IN LEFT FA, IVF CONTINUE TO INFUSE WITH NO PROBLEMS. POOR APPETITE. DENIED ANY COMPLAINT OR CONCERNS. SLEPT WELL T/O SHIFT. CALL LIGHT IN REACH, BED ALARM IS ON.
--- NOTE | 2021-02-03 09:30 | NUR ---
Yesterday Farhana, RN with [facility] called to confirm and follow-up with me regarding the patient still needing placement. [facility] has done an assessment and will accept her. Last week I faxed [facility] the [facility] Request Form requesting $3,000 for coffee roaster and guardianship fees to start the guardianship process. Rosalie Villalobos with [facility] ([phone]) called last week stating it has been approved and requested a W9 from Liya Heller ([phone]) who is willing to become guardian. I have also been corresponding with [facility] Collection Card Clerk ([phone]) regarding facility placement and guardianship. Yesterday I spoke with Joss Rodriguez here at [facility] who is familiar with this process and we have scheduled a phone conference to discuss this with Liya Heller today at 11am.
--- NOTE | 2021-02-03 17:13 | NUR ---
ALERT. CONFUSED. SLOW TO RESPOND. EMOTIONAL. POOR APPETITE. DENIES ANY PAIN OR DISCOMFORT. UNLABORED RESPIRATIONS. AWAITING GUARDIANSHIP AND PLACEMENT. TM
--- NOTE | 2021-02-03 23:41 | NUR ---
ZOEY HAS BEEN VERY AGGITATED, AGGRESSIVE TOWARDS STAFF. ON THE CALL LIGHT EVERY FEW MINUTES BUT REFUSES ALL CARE. DOES NOT WANT ANYONE TO TOUCH HER. REFUSED HER SEREQUEL AND NIGHT MEDS SEVERAL TIMES. SHE HAS BEEN THREATING AND NON-COMPLAINT. KELLI HAD TO GIVE HER ZYPREXA IM TO GET HER TO CALM DOWN AND ABLE TO WORK WITH STAFF.
--- NOTE | 2021-02-04 05:46 | NUR ---
SHIFT SUMMARY: ZOEY HAS HAD AN INCREASE IN AGGITATION, CONFUSION ALL NIGHT. SHE GOT AGGRESSIVE AND VERBALLY ABUSIVE AT TIMES. SHE STARTED TO HAVE OFF THE WALL BELEIFS, AND TALKING ABOUT SOME VERY INAPPROPRIATE THINGS AND REQUESTING THINGS LIKE CONTROL AND PRENATALS. SHE REFUSED HER PM MEDICATION, SEVERAL TIMES. AT WHICH ZYPREXA WAS NEEDED FOR HER TO CALM DOWN. SHE STILL CONTINUED TO BE ON THE CALL LIGHT BUT WOULD REFUSE CARE WHEN ASKED. DID NOT SLEEP MUCH. VS WNL, AFEBILE. POOR APPETITE. PAIN WITH URINATION, URINE CLOUDY. CALL LIGHT IN REACH. BED ALARM IS ON.
--- NOTE | 2021-02-04 12:30 | NUR ---
DIFFICULT TO GET PATIENT TO COOPERATE. TALKS OFTEN ABOUT "JOSE" "SAVE HER" "SHE'S IN A CAVE". GETS VERY UPSET WHEN; REORIENTED, REDIRECTED OR EVEN ACKNOWLEDGING. UFF AWARE AND ORDERED PRN SEROQUEL OR CAN GIVE IM ZYPREXA.TM
--- NOTE | 2021-02-04 15:56 | NUR ---
ALERT TO SELF. VERY CONFUSED. DOING MUCH BETTER AFTER SEROQUEL. ONE PERSON ASSIST TO BSC. UNLABORED RESPIRATIONS. RECOMMEND GUARDIANSHIP AND EVENTUALLY PLACEMENT. POOR APPETITE. URINE SENT FOR CULTURE. WCTM
--- NOTE | 2021-02-05 06:07 | NUR ---
SUMMARY PT HAS BEEN PLESANT AND COOPERATIVE. PT REMAINS CONFUSED AND FORGETFUL. PT TOOK NIGHT MEDS AND HAS BEEN SLEEPING WELL. PT CURRENTLY SLEEPING AND IN NO DISTRESS. CALL LIGHT IN REACH AND BED ALARM ON.
--- NOTE | 2021-02-05 19:39 | NUR ---
PT IS A/OX3. PLEASANT AND COOPERATIVE TODAY. THE PT IS UP WITH MINIMAL ASSIST. PT DENIED ANY PAIN, N/V OR SOB T/O THE DAY. THE PT APPEARS TO BE BREATHING EASILY ON RA. CALL LIGHT IN REACH. NO OTHER CHANGES NOTICED THIS SHIFT
[2021-02-06 05:36] LABS: BASOPHILS ABSOLUTE AUTO 0.04 K/mm3 (0.00-0.23); BASOPHILS PERCENT AUTO 0 % (0-2); EOSINOPHILS ABSOLUTE AUTO 0.04 K/mm3 (0.00-0.68); EOSINOPHILS PERCENT AUTO 0 % (0-6); Hematocrit 26.7 % (33.0-51.0); Hemoglobin 8.3 g/dL (11.5-16.0); IMMATURE GRAN ABSOLUTE AUTO 0.13 K/mm3 (0.00-0.10); IMMATURE GRAN PERCENT AUTO 1 % (0-1); LYMPHOCYTES ABSOLUTE AUTO 2.92 K/mm3 (0.84-5.20); LYMPHOCYTES PERCENT AUTO 30 % (21-46); MONOCYTES PERCENT AUTO 7 % (4-13); Mean Corpuscular HGB 28.8 pg (26.0-34.0); Mean Corpuscular HGB Conc 31.1 g/dL (31.5-36.5); Mean Corpuscular Volume 93 fL (80-100); NEUTROPHILS ABSOLUTE AUTO 5.98 K/mm3 (1.96-9.15); NEUTROPHILS PERCENT AUTO 61 % (41-73); NRBC ABSOLUTE 0.04 K/mm3 (0.00-0.02); NRBC Auto 0.4 /100 WBC (0.0-0.2); Platelet Count 326 K/mm3 (150-400); RDW Coefficient Variation 15.5 % (11.7-14.2); RDW Standard Deviation 52.7 fL (35.1-46.3); Red Blood Cell Count 2.88 M/mm3 (3.80-5.20); White Blood Cell Count 9.81 K/mm3 (4.00-11.30)
--- NOTE | 2021-02-06 06:00 | NUR ---
SHIFT SUMMARY PT IS A 70 Y/O FEMALE, ADMITTED FOR ALTERED MENTAL STATUS. PT IS A&O X 2, AGITATED AT TIMES. 1PA TO THE BSC. NO C/O PAIN, NAUSEA OR SOB. VITAL SIGNS STABLE. PT RECEIVING NS @ 100 ML/HR. NO ACUTE CHANGES IN PT CONDITION NOTED. WILL CONTINUE TO MONITOR AND TREAT PER EMAR UNTIL HAND OFF TO DAY SHIFT RN.
[2021-02-06 06:40] LABS: Albumin, Blood 2.3 g/dL (3.4-5.0); Albumin/Globulin Ratio 0.7 (0.8-1.8); Bilirubin, Total 0.2 mg/dL (0.1-1.0); Bun/Creatinine Ratio 12.9 (12.0-20.0); Calcium, Blood 10.4 mg/dL (8.5-10.1); Creatinine, Blood 1.47 mg/dL (0.40-1.00); Globulin, Blood 3.5 g/dL (2.2-4.0); Potassium, Blood 3.8 mmol/L (3.5-5.5); Total Protein, Blood 5.8 g/dL (6.4-8.2)
--- NOTE | 2021-02-06 18:29 | NUR ---
SHIFT SUMMARY PATIENT IS ALERT AND ORIENTED X2, SELF AND TIME. PLEASANT AND COOPERATIVE WITH CARE. THE PATIENT REFUSED BOWEL CARE THIS SHIFT. PATIENT HAS NS RUNNING AT 100ML/HR. PATIENT IS CURRENTLY HAS A VISITOR AT BEDSIDE. VSS. NO ACUTE CHANGES THIS SHIFT. WILL CONTINUE TO CARE FOR THE PATIENT UNTIL SHIFT REPORT IS GIVEN TO ONCOMING NURSE.
--- NOTE | 2021-02-07 04:01 | NUR ---
SHIFT SUMMARY NO ACUTE CHANGES DURING THIS SHIFT. PT A&O X 2-3. NS @ 100/HR. VSS. PT SLEEPING THROUGHOUT SHIFT. CALL LIGHT WITHIN REACH. WILL CONTINUE TO MONITOR.
--- NOTE | 2021-02-07 17:09 | NUR ---
SHIFT SUMMARY PATIENT IS ALERT AND ORIENTED X2, PLEASANT AND COOPERATIVE WITH CARE. PATIENT HAS NS RUNNING AT 100MLS/HR. 20G IN LEFT FOREARM. 1 PERSON SBA TO THE BSC. PATIENT HAD A BED BATH THIS SHIFT. THE PATIENT REFUSED BOWEL CARE. PATIENT WAS EDUCATED ABOUT THE USE OF BOWEL CARE. PATIENT STILL DECLINED. PATIENT ASKED FOR A ROOTBEER. CURRENTLY IN BED RESTING. NO ACUTE CHANGES THIS SHIFT. CALL LIGHT WITHIN REACH. THIS NURSE WILL CONTINUE TO CARE FOR THE PATIENT UNTIL SHIFT REPORT IS GIVEN TO ONCOMING NURSE.
--- NOTE | 2021-02-08 03:26 | NUR ---
VULNERABILITY ASSESSMENT ANALYST SUMMARY AWAKE AT INTERVALS. NO COMPLAINTS VOICED OTHER THAN WANTING STAFF TO SIT AND TALK WITH HER. IVF OF NS INFUSING AT 100 ML/HR FOR HYDRATION. TOLERATING MEDS WITH "PUDDING". STAFF CONTINUES TO CHECK IN ON PT AT INTERVALS TO CHAT AND GIVE ENCOURAGEMENT. CALL LIGHT IN REACH. NOTE PT SMILING WHEN CHECKED ON
--- NOTE | 2021-02-08 16:51 | NUR ---
SHIFT SUMMARY PT AWAKE AT START OF SHIFT, STAYING AWAKE ALL DAY. PT DOES NOT LIKE TO GET UP TO CHAIR AND STAY THERE FOR MORE THAN A COUPLE OF MINUTES. PT REFUSING TO EAT MUCH OF ANYTHING. DID HAVE [place] PUDDING FOR LUNCH AND AFTERNOON SNACK. CALLED FOR ASSIST TO BSC TO VOID. DENIED FURTHER NEEDS. DR SUNG HERE TO SEE PT EARLIER TODAY. PT CONTINUES TO WAIT FOR PLACEMENT; POSSIBLE D/C TO BOND CT ON HOSPICE, PER REPORT. CALL LT IN REACH.
--- NOTE | 2021-02-09 05:33 | NUR ---
BATCH DUMPER SUMMARY CONTINUES TO BE AWAKE AT INTERVALS THROUGH SHIFT, MEDICATED PER APR. CALLS STAFF IN TO TALK, THOUGHT PATTERNS REMAIN BROKEN. VSS. MEDICATIONS TOLERATED WITH CHOCOLATE PUDDING. CALL LIGHT IN REACH. ENCOURAGED TO TRY TO SLEEP DURING NIGHT.
[2021-02-09 07:26] LABS: Albumin, Blood 2.6 g/dL (3.4-5.0); Albumin/Globulin Ratio 0.7 (0.8-1.8); Bilirubin, Total 0.5 mg/dL (0.1-1.0); Bun/Creatinine Ratio 10.7 (12.0-20.0); Creatinine, Blood 1.4 mg/dL (0.40-1.00); Globulin, Blood 3.7 g/dL (2.2-4.0); Phosphorus, Blood 4.7 mg/dL (2.5-4.9); Potassium, Blood 4.4 mmol/L (3.5-5.5); Total Protein, Blood 6.3 g/dL (6.4-8.2)
--- NOTE | 2021-02-09 10:43 | NUR ---
I spoke with Liya Lombardi this morning, she is filing emergency guardianship paperwork today. She first needs to follow up with [facility] - patient's APD case finisher in regards to her income. Patient is to transfer to [facility] once guardianship is established.
--- NOTE | 2021-02-09 15:28 | NUR ---
SHIFT SUMMARY NO ACUTE CHANGES TO PRESENT THIS SHIFT. PT AWAKE AGAIN AT START OF SHIFT. REFUSING TO EAT MUCH OF ANYTHING AND WON'T TAKE ANY MEDICATIONS. PT WAS WILLING TO TAKE A SHOWER THIS AFTERNOON; [employer] ASSISTED. PT NOW SITTING IN CHAIR AT BS. YESTERDAY PT WOULD NOT SIT IN CHAIR FOR MORE THAN A FEW MINUTES. DR FUNG CALLED TO REPORT MEDICATION ADJUSTMENTS TO HELP PT SLEEP AT NIGHT. NO C/O PAIN. DENIES NEEDS AT THIS TIME. CALL LT IN REACH. CHAIR ALARM IN PLACE FOR SAFETY.
--- NOTE | 2021-02-09 22:28 | NUR ---
WAS ASSISTED TO BED EARLIER AFTER TRIP TO BATHROOM. ORIENTED TO SELF, NOTE BROKEN THOUGHT PATTERNS AND FORGETFULNESS DURING CONVERSATION. CALL LIGHT IN REACH. TOLERATED HS MEDS WITH CHOCOLATE PUDDING.
--- NOTE | 2021-02-10 03:44 | NUR ---
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 RECEIVED HS MEDS, INCLUDING SEROQUEL, WITH CHOCOLATE PUDING AND HAS BEEN RESTING QUIETLY WITH FEW INTERRUPTIONS SINCE. CALL LIGHT IN REACH. NO C/O VPICED. NO NOTED ACUTE DISTRESS. WILL CONTINUE TO MONITOR
--- NOTE | 2021-02-10 17:23 | NUR ---
PT AAOX 2-3 , ABLE TO MAKE NEEDS KNOWN. COMPLIANT YO MEDICATION REGIMEN. CONTINUES ON PO ABT NO ADVERSE REACTIONS NOTED. PT AMBULATES USING WALKER WITH STANDBY ASSIST. ON RA , NO DISTRESS NOTED. BED IN LOWEST POSITION. CALL LIGHT IN REACH.
--- NOTE | 2021-02-11 04:50 | NUR ---
SHIFT SUMMARY PT REMAINS CONFUSED. PLEASANTLY SO THIS EVENING. COOPERATIVE WITH STAFF. TOOK HS MEDICATIONS WELL AND SLEPT THROUGH MUCH OF THE NIGHT. NO COMPLAINTS OF PAIN. VITAL SIGNS STABLE. PT AWAITING GAURDIANSHIP AND PLACEMENT. NO ACUTE EVENTS THIS SHIFT.
--- NOTE | 2021-02-11 17:34 | NUR ---
SHIFT SUMMARY PT AAOX 2, ABLE TO MAKE NEEDS KNOWN. REMAINS ON RA NO DISTRESS NOTED. PT HAS GOOD APPETITE, ATE MORE THAN 75% TO 100% OF MEALS. AMBULATES WITH WALKER, STANDBY ASSIST NEEDED. BED IN LOWEST POSITION. CALL LIGHT IN REACH.
--- NOTE | 2021-02-12 04:10 | NUR ---
PATIENT WAS ALERT AND ORIENTED X2, STABLE VITAL SIGNS, NO ACUTE CHANGES. PATIENT DENIED ANY PAIN. PATIENT HAD MOMENTS OF CONFUSION BUT WAS REORIENTED. WOKE TO USE THE RESTROOM, STAND BY ASSIST. CALL LIGHT WITHIN REACH AND BED DOWN TO THE LOOWEST POSITION. WILL CONTINUE TO MONITOR UNTIL HAND OFF
[2021-02-12 05:53] LABS: BASOPHILS ABSOLUTE AUTO 0.03 K/mm3 (0.00-0.23); BASOPHILS PERCENT AUTO 0 % (0-2); EOSINOPHILS ABSOLUTE AUTO 0.02 K/mm3 (0.00-0.68); EOSINOPHILS PERCENT AUTO 0 % (0-6); Hematocrit 24.7 % (33.0-51.0); Hemoglobin 7.4 g/dL (11.5-16.0); IMMATURE GRAN ABSOLUTE AUTO 0.06 K/mm3 (0.00-0.10); IMMATURE GRAN PERCENT AUTO 1 % (0-1); LYMPHOCYTES ABSOLUTE AUTO 2.69 K/mm3 (0.84-5.20); LYMPHOCYTES PERCENT AUTO 33 % (21-46); MONOCYTES ABSOLUTE AUTO 0.76 K/mm3 (0.16-1.47); MONOCYTES PERCENT AUTO 9 % (4-13); Mean Corpuscular HGB 28.2 pg (26.0-34.0); Mean Corpuscular Volume 94 fL (80-100); Mean Platelet Volume 9.5 fL (9.1-12.4); NEUTROPHILS ABSOLUTE AUTO 4.49 K/mm3 (1.96-9.15); NEUTROPHILS PERCENT AUTO 56 % (41-73); NRBC ABSOLUTE 0.05 K/mm3 (0.00-0.02); NRBC Auto 0.6 /100 WBC (0.0-0.2); Platelet Count 363 K/mm3 (150-400); RDW Coefficient Variation 16.5 % (11.7-14.2); RDW Standard Deviation 55.3 fL (35.1-46.3); Red Blood Cell Count 2.62 M/mm3 (3.80-5.20); White Blood Cell Count 8.05 K/mm3 (4.00-11.30)
[2021-02-12 06:48] LABS: Albumin, Blood 2.4 g/dL (3.4-5.0); Albumin/Globulin Ratio 0.7 (0.8-1.8); Bilirubin, Total 0.4 mg/dL (0.1-1.0); Bun/Creatinine Ratio 23.6 (12.0-20.0); Calcium, Blood 10.7 mg/dL (8.5-10.1); Creatinine, Blood 1.57 mg/dL (0.40-1.00); Globulin, Blood 3.4 g/dL (2.2-4.0); Potassium, Blood 4.1 mmol/L (3.5-5.5); Total Protein, Blood 5.8 g/dL (6.4-8.2)
--- NOTE | 2021-02-12 16:23 | NUR ---
PT ALERT AND ORIENTED X 2-3, ABLE TO MAKE NEEDS KNOWN. COMPLIANT TO MEDICATION REGIMEN. ASSISTED WITH ADL'S NEEDED. AMBULATES WITH WALKER WITH STANDBY ASSIST. REMAINS ON RA, NO DISTRESS NOTED. BED IN LOWEST POSITION. CALL LIGHT IN REACH, PT USES APPROPRIATELY.
--- NOTE | 2021-02-13 05:54 | NUR ---
SHIFT SUMMARY: PATIENT A&OX2-3 CONFUSION, COMPLIANT WITH MEDICATION ADMINISTRATION, SBA TO BATHROOM WITH USE OF FWW. NO SIGNIFICANT EVENTS OVER NIGHT.
--- NOTE | 2021-02-13 18:18 | NUR ---
SHIFT SUMMARY PT IS AAOX3 WITH PERIODS OF CONFSUION. CONTINUES ON RA, NO DISTRESS NOTED. PT BRP WITH STANDBY ASSIST X 1. BED IN LOWEST POSITION. CALL LIGHT IN REACH
--- NOTE | 2021-02-14 04:49 | NUR ---
SHIFT SUMMARY A/O TO SELF. VITAL SIGNS STABLE. VOIDING AND PASSING LITTLE AMOUNTS OF STOOL. PLEASANT AND COOPERATIVE, RESTING WELL THROUGHOUT NIGHT. NO ACUTE CHANGES OVER NIGHT. WILL REPORT TO ONCOMING RN.
--- NOTE | 2021-02-14 18:35 | NUR ---
SHIFT SUMMARY PT AAAOX 2-3 WITH PERIODS CONFUSION. ABLE TO STATE NEEDS,AMBULATES WITH WALKER TO BR, WITH STANDBY ASSIST. NO COMPLAINTS VOICED. BED IN LOWEST POSITION WITH CALL LIGHT IN REACH.
--- NOTE | 2021-02-15 05:48 | NUR ---
PT slept quietly after telephone was removed from bed because PT had been calling switchboard repeatedly. She at first was aggitated with phone removal & reminding she has a phone available & assist from staff to place phone call but she did not need unlimited access to the phone. She asked to have TV turned off & has been sleeping soundly.
--- NOTE | 2021-02-15 16:36 | NUR ---
SHIFT SUMMARY PT AxOx3 WITH INTERM CONFUSION. PT PLEASANT AND COOPERATIVE WITH CARE THIS SHIFT. PT STATES HER APPETITE IS IMPROVED TODAY. PT DENIES PAIN THIS SHIFT. VITALS REVIEWED. CURRENT PLAN PENDING GUARDIANSHIP AND PLACEMENT, POSSIBLE HOSPICE. PT IS CURRENTLY RESTING IN BED WITH CALL LIGHT IN REACH. DENIES ANY NEEDS AT THIS TIME.
--- NOTE | 2021-02-16 16:52 | NUR ---
SHIFT SUMMARY PT IS EXTREMELY CONFUSED AND AT TIMES UNABLE TO BE REORIENTED TO PLACE OR TIME AND CAN NOT BE REDIRECTED WHEN OUT OF PLACE. SHE GETS AGGITATED WHEN SHE DOES NOT UNDERSTAND. SHE CALLS ON THE LIGHT EVERY 10-15 MINUTES BUT UNSURE OF WHY OR WHAT SHE NEEDS WHEN SHE CALLS. AAOX1 ONLY. DID C/O PAIN IN THE AM AND MEDICATED WITH TYLENOL X1. NO C/O SOB OR N/V VOICED. SMALL AMOUNTS OF URINE OUTPUT NOTED AND NOTIFIED. ONLY TAKING IN ABOUT 10% OF MEALS IF THAT AND SOMETIMES DRINKS ENSURE. VSS. NAD NOTED. WILL CONTINUE TO MONITOR IN CARE UNTIL ONCOMING SHIFT ARRIVAL.
--- NOTE | 2021-02-17 04:55 | NUR ---
SHIFT SUMMARY PT AOX1 AND HAVING INCREASED CONFUSION WITH HALLUCINATIONS. PT ABLE TO AMBULATE TO BEDSIDE WITH ONE PERSON ASSIST AND TOLERATED WELL. PT WOULD CALL ON THE LIGHT BUT THEN SAY, "NOBODY HAS COME TO SIT IN HERE WITH ME YET!" PT NOT EASY TO REDIRECT BUT GETS IRRITATED EASY. PT RESTED WELL WITH RISE AND FALL OF CHEST NO S/S OF DISTRESS. WILL CONTINUE TO MONITOR UNTIL REPORT IS GIVEN.
--- NOTE | 2021-02-17 12:44 | NUR ---
DISCHARGE HOME NOTE PT AAOX4. INDEPENDENT. HE AMBULATED THE HALLS WITH 10 LAPS OF SPRINT WALKING AND HAD NO C/O SOB, CHEST DISCOMFORT OR PAIN VOICED. HE TOLERATED WELL. HAD AM MEDS. WAS SEEN AND CLEARED BY CARDIOLOGY AND SET FOR A F/U APPOINMENT IN 2 WEEKS. EXPRESSED MED CHANGES AND NEW MEDS ADDED. QUESTIONS ANSWERED AND DISCUSSED DISCHARGE INFORMATION. IV REMOVED FROM RIGHT ARM AND BANDAIDE APPLIED. ESCORTED OFF UNIT PER [place] HELPER VIA WHEELCHAIR TO HIS PARKED VEHICLE ON PARKING LOT WHERE HE DROVE HIMSELF HOME.
--- NOTE | 2021-02-17 18:06 | NUR ---
SHIFT SUMMARY PT AAOX1 ONLY. UNABLE TO REORIENT TO PLACE AND TIME. LESS AGGITATED ON TODAY THAN PREVIOUS DAY. WAS UNCOOPERATIVE AND FUSSY IN AM AND DID RECEIVE A DOSE OF PRN SEROQUEL GIVEN. AFTERWARDS SHE WAS MORE CALM AND COOPERATIVE AND FOLLOWING INSTRUCTIONS. FINALLY AGREED TO A SHOWER AND HAIR WASH THIS PM AND ASSISTED WITH NO PROBLEMS. ASKED FOR HER PHONE BACK AND STATED SHE WOULD NOT MAKE BAD CALLS OR TO THE DISTRICT COURT JUSTICE ANYMORE AND DID PLUG THE PHONE BACK IN AND INSTRUCTED TO NOT DIAL 911 PREVIOUS. PHONE ONLY USED FOR FAMILY PURPOSES. TOOK MEDS TODAY AND ATE SMALL AMOYUNTS OF MEALS MAYBE 25% AND ASKED FOR ENSURE. VSS. NAD NOTED. NO C/O PAIN, SOB, N/V, OR DISCOMFORT VOICED. WILL MONITOR IN CARE UNTIL NEW SHIFT ARRIVES.
--- NOTE | 2021-02-18 05:36 | NUR ---
SHIFT SUMMARY PT AOX1-2 AND WAS ASKING ABOUT USING THE PHONE TO MAKE, "[facility]!" PT DID EAT A SNACK AND DRANK SOME [facility] MEDS. PT AMBULATED WELL WITH STANDBY ASSISTANCE TO BEDSIDE A FEW TIMES THIS SHIFT. PT WAS UPSET THAT THE PHONE WAS UNPLUGGED AFTER MULTIPLE CALLS TO 911 MADE BY THE PT. PT STILL VERY CONFUSED AND YELLS FOR HELP TO HAVE COMPANY IN THE ROOM. PT WAS FINALLY ABLE TO REST WITH RISE AND FALL OF CHEST, NO DISTRESS. THIS NURSE WILL CONTINUE TO MONITOR UNTIL REPORT IS GIVEN.
[2021-02-18 13:16] LABS: BASOPHILS ABSOLUTE AUTO 0.01 K/mm3 (0.00-0.23); BASOPHILS PERCENT AUTO 0 % (0-2); EOSINOPHILS PERCENT AUTO 0 % (0-6); Hematocrit 32.6 % (33.0-51.0); Hemoglobin 9.8 g/dL (11.5-16.0); IMMATURE GRAN ABSOLUTE AUTO 0.03 K/mm3 (0.00-0.10); IMMATURE GRAN PERCENT AUTO 1 % (0-1); LYMPHOCYTES PERCENT AUTO 21 % (21-46); MONOCYTES ABSOLUTE AUTO 0.85 K/mm3 (0.16-1.47); MONOCYTES PERCENT AUTO 15 % (4-13); Mean Corpuscular HGB 27.8 pg (26.0-34.0); Mean Corpuscular HGB Conc 30.1 g/dL (31.5-36.5); Mean Corpuscular Volume 93 fL (80-100); Mean Platelet Volume 9.4 fL (9.1-12.4); NEUTROPHILS ABSOLUTE AUTO 3.62 K/mm3 (1.96-9.15); NEUTROPHILS PERCENT AUTO 63 % (41-73); Platelet Count 296 K/mm3 (150-400); RDW Coefficient Variation 17.1 % (11.7-14.2); RDW Standard Deviation 58.3 fL (35.1-46.3); Red Blood Cell Count 3.52 M/mm3 (3.80-5.20); White Blood Cell Count 5.71 K/mm3 (4.00-11.30)
[2021-02-18 13:55] LABS: Albumin/Globulin Ratio 0.6 (0.8-1.8); Bilirubin, Total 0.3 mg/dL (0.1-1.0); Bun/Creatinine Ratio 25.5 (12.0-20.0); Calcium, Blood 11.3 mg/dL (8.5-10.1); Creatinine, Blood 2.74 mg/dL (0.40-1.00); Globulin, Blood 4.8 g/dL (2.2-4.0); Potassium, Blood 4.3 mmol/L (3.5-5.5); Total Protein, Blood 7.8 g/dL (6.4-8.2)
--- NOTE | 2021-02-18 17:34 | NUR ---
SHIFT SUMMARY PT IS AAOX1 ONLY. UNABLE TO BE REORIENTED TO PLACE OR TIME. CAN NOT BE REDIRECTED. VERY CONFUSED AND CAN BECOME AGGITATED. SHE ALSO HAS PERIODS OF PARANOIA AND HALLUCINATIONS. SHE STATES TO HAVE SEEN SNAKES IN HER ROOM AND PEOPLE THAT WERE NOT THERE. SHE IS ANGRY AND EMOTIONAL. WAS MEDICATED X1 TODAY WITH PRN DOSE OF SEROQUEL. AMBULATES TO RESTROOM WITH WALKER AND STAND BY ASSIST. VSS. NAD NOTED. HAS NO C/O PAIN, SOB OR N/V VOICED. WILL CONTINUE TO MONITOR IN CARE UNTIL ONCOMING SHIFT CHANGE.
--- NOTE | 2021-02-19 03:08 | NUR ---
SHIFT SUMMARY PATIENT HAD NO ACUTE CHANGES OBSERVED. AXO X 1-2 WITH HX OF DEMENTIA. NOT REDIRECTABLE. ONE ASSIST TO BSC. TAKES MEDICATION WHOLE WITH WATER X ONE EACH. NO IV ACCESS. VSS/AFEBRILE. DENIES PAIN, SOB, AND N/V. ABLE TO SLEEP MOST OF THE SHIFT. CALL LIGHT IN REACH. BED IN LOWEST POSITION. WILL CONTINUE TO MONITOR UNTIL DAY SHIFT NURSE ASSUMES CARE.
--- NOTE | 2021-02-19 17:25 | NUR ---
SHIFT SUMMARY PATIENT A&0 X1. SHE IS CONFUSED AND CAN GET AGITATED AND ANGRY. PATIENT GOT UP TO BATHROOM TODAY 1PA WITH WALKER. PATIENT HAD BOWEL MOVEMENT TODAY. PATIENT BECAME INCREASINGLY AGITATED AND ANGRY AT LUNCH TIME AND REFUSING ALL CARE. PATIENT DENIES ANY PAIN, SOB, N/V. WILL CONTINUE TO MONITOR.
--- NOTE | 2021-02-20 04:36 | NUR ---
SHIFT SUMMARY PT AGITATED AND CONFUSED THIS EVENING. PT SEEMED RESTLESS AND ANXIOUS. MEDICATED PER EMAR. PT RESTING QUIETLY IN HER ROOM. OFFERED PT SNACKS AND BEVERAGES. PT WILL CALL OUT INSTEAD OF USING CALL LIGHT. CALL LIGHT IS WITHIN PT REACH. WILL CONTINUE TO MONITOR.
[2021-02-20 05:24] LABS: Anion Gap 9 mmol/L (6-16); Blood Urea Nitrogen 69 mg/dL (8-24); Bun/Creatinine Ratio 29.4 (12.0-20.0); CO2, Blood 27 mmol/L (21-32); Calcium, Blood 10.5 mg/dL (8.5-10.1); Chloride, Blood 102 mmol/L (98-108); Creatinine, Blood 2.35 mg/dL (0.40-1.00); Glomerular Filtration Rate 20 (60-); Glucose, Blood 110 mg/dL (70-99); Phosphorus, Blood 4.8 mg/dL (2.5-4.9); Potassium, Blood 3.8 mmol/L (3.5-5.5); Sodium, Blood 138 mmol/L (136-145)
--- NOTE | 2021-02-20 10:00 | NUR ---
Update: notified during rounds that pt refused all AM meds.
--- NOTE | 2021-02-20 21:40 | NUR ---
VOICED ABD PAIN, NOTE SWELLING IN AREA, BOWEL SOUNDS VERY LIGHT. CALL PLACED TO MD RESPIRATORY THERAPY ASSISTANT - ORDERS RECEIVED FOR PORTABLE X RAY. CALL LIGHT IN REACH
--- NOTE | 2021-02-21 05:58 | NUR ---
ASSISTED TO BATHROOM. INCONT OF LARGE PASTY BM. AFFECT MORE CHEERFUL. NO NOTED SWELLING OF ABD. ASSISTED BACK TO BED. CALL LIGHT IN REACH
--- NOTE | 2021-02-21 16:48 | NUR ---
SHIFT SUMMARY: NO ACUTE CHANGES T/OUT SHIFT. PT NAPS T/OUT DAY, ABLE TO PARTICIPATE WITH CARE AND CARRY CONVERSATION IN SMALL AMOUNTS. PT DENIED BREAKFAST TRAY, WAS ASSISTED WITH LUNCH AND ABLE TO EAT A SMALL PORTION, STATED IT HELPED TO HAVE ASSISTANCE WITH EATING. PT CONTINUES ON RA, DENIES SOB. DENIES CP. AT THIS TIME, PT RESTING QUIETLY IN BED WITH CALL LIGHT WITHIN REACH. WILL CONTINUE TO MONITOR AND TREAT ACCORDINGLY UNTIL CHANGE OF SHIFT.
--- NOTE | 2021-02-22 04:54 | NUR ---
SHIFT SUMMARY: PT IS A/OX1-2 (BASELINE), SHE WAS PLEASANT DURING THE NOC SHIFT AND USED HER CALL LIGHT FOR ALL NEEDS. SHE IS A SBA TO THE BSC. SHE NEEDS TO BE PROMPTED TO STAND UP STRAIGHT AND NOT LEAN BACK WHILE USING THE FWW. PT REPORTED SOME ABDOMINAL DISCOMFORT THE BEGINNING OF THE SHIFT, BUT IT QUICKLY RESOLVED ON IT'S OWN. NO NEW C/O OF PAIN. BED IS IN LOWEST POSITION AND ALARM IS SET.
--- NOTE | 2021-02-22 11:12 | NUR ---
Per Pilar Lombardi, patient now has guardianship. I emailed and faxed move in orders, and patient updates to [facility]'s Admin (Gabby) and Nurse (Farhana). Waiting on a call back from Farhana to proceed with scheduling transfer time either today or tomorrow.
--- NOTE | 2021-02-22 12:24 | NUR ---
I spoke with Farhana ([facility]'s Nurse) and she said they were planning on her transferring today. I have called [facility] to schedule transport, rapid covid has been ordered. Pilar Lombardi, patient's nurse, Dr. Rodriguez, and Farhana are all aware patient is transferring today via wheelchair. I have ordered a hospital bed and front-wheeled walker to be delivered by [facility] to patient's [place] room 208A.
[2021-02-22] MEDS ORDERED: Amlodipine Bes2.5 MG PO (12:26)
[2021-02-22] MEDS ORDERED: DRON2.5 PO (12:29)
[2021-02-22] MEDS ORDERED: ZYPREXA10 MG IM (12:31)
[2021-02-22] MEDS ORDERED: ONDA4ODT MM (12:32)
[2021-02-22] MEDS ORDERED: MIRALAX11910 PO (12:35)
[2021-02-22] MEDS ORDERED: Seroquel Xr50 MG PO (12:36)
[2021-02-22] MEDS ORDERED: QUET300 PO (12:36)
[2021-02-22] MEDS ORDERED: [UNRECOGNIZED DRUG - OTHER] PR (12:39)
--- NOTE | 2021-02-22 14:34 | NUR ---
PT TO DISCHARGE TO FACILITY THIS AFTERNOON, BY GURNEY TRANSPORT. PT ALERT TO SELF. PT WAS BECOMING AGGITATED WITH ANY STAFF THAT ENTERED HER ROOM, FOUND A STAFF MEMBER ABLE TO WORK WITH HER, RN OSCAR SAT AND SPOKE TO THE PT AND PT RECIEVED A PRN SEROQUEL. SHE HAS BEEN SITTING QUIETLY IN HER ROOM SINCE THAT TIME AWAITING TRANSPORT TO HER NEW FACILITY [place]. LEE GALLARDO
--- NOTE | 2021-02-22 15:25 | NUR ---
Per Dr. Rodriguez, patient is appropriate for discharge to [facility] room 208[address]. I spoke with [facility]'s Nurse - Farhana - who is aware the patient is transfering. Patient's guardian, Pilar Lombardi, also aware that the patient is transferring to [facility]. I ordered a hospital bed and front wheeled walker to be delivered to [facility] via [facility] this afternoon before patient arrives. Pilarchaparro Lombardi is in the process of purchasing toiletries and clothes for the patient. I went to visit in her room and she was agitated due to the nurse requesting to swab her nose for a covid test - which declined. asked me to leave several times, I was not able to see what clothes or belongings she did have with her, or to confirm with her that she is transferring today. Patient was given prn medication for transport. Patient to transport by rney via [facility]. ETA was 2:30PM, [facility] called stating they were running late.
--- NOTE | 2021-02-22 15:44 | NUR ---
DISCHARGE NOTE- PT DISCHARGED TO [facility]. PT REFUSED TO GET DRESSED STATING THE CLOTHES IN HER ROOM WERE NOT HERS. PT WAS SENT OUT TO [facility] IN A GOWN WITH HER CLOTHES IN BELONGINGS BAGS. PT TAKEN [facility] TRANSPORT FOR SAFETY. DISCHARGE PACKET SENT WITH TRANSPORTERS.
== END 2021-02-22 15:30 | DRG 56 ==
LOC: ER 14:11 → ERHOLD 22:38 → MEDS 22:38
PROVIDERS: Family Medicine; Hospitalist; Internal Medicine; Internal Medicine Endocrinology, Diabetes & Metabolism; Student in an Organized Health Care Education/Training Program; ADMIT Internal Medicine
DX: G30.9 Alzheimer's disease, unspecified (principal); G92.8 Other toxic encephalopathy; N17.9 Acute kidney failure, unspecified; M62.82 Rhabdomyolysis; N39.0 Urinary tract infection, site not specified; C79.51 Secondary malignant neoplasm of bone; F02.81 Dementia in other diseases classified elsewhere, unspecified severity, with behavioral disturbance; K21.9 Gastro-esophageal reflux disease without esophagitis; F31.9 Bipolar disorder, unspecified; J45.909 Unspecified asthma, uncomplicated; I12.9 Hypertensive chronic kidney disease with stage 1 through stage 4 chronic kidney disease, or unspecified chronic kidney disease; N18.30 Chronic kidney disease, stage 3 unspecified; D63.1 Anemia in chronic kidney disease; E86.0 Dehydration; F25.0 Schizoaffective disorder, bipolar type; E66.9 Obesity, unspecified; E83.52 Hypercalcemia; G47.00 Insomnia, unspecified; E16.2 Hypoglycemia, unspecified; R62.7 Adult failure to thrive; E78.5 Hyperlipidemia, unspecified; Z85.3 Personal history of malignant neoplasm of breast; Z90.11 Acquired absence of right breast and nipple; Z90.89 Acquired absence of other organs; Z98.890 Other specified postprocedural states; Z92.21 Personal history of antineoplastic chemotherapy; Z88.8 Allergy status to other drugs, medicaments and biological substances; Z88.0 Allergy status to penicillin; Z88.2 Allergy status to sulfonamides; Z68.21 Body mass index [BMI] 21.0-21.9, adult
CPT/HCPCS: 36415; 51701; 70450; 71045; 73030; 73070; 73522; 73560-LT; 73560-RT; 74018; 78306; 80048; 80053; 80069; 81001; 81025; 82040; 82248; 82274; 82306; 82397; 82550; 82553; 82607; 82728; 82746; 82784; 82947; 83540; 83550; 83735; 83883; 83970; 84100; 84155; 84165; 85025; 85045; 85651; 86140; 86334; 87077; 87086; 87186; 92526; 92610; 93005; 93010; 96372; 96374; 96375; 96376; 99285-25; A9270; A9503; G0480; J1200; J1630; J1644; J1650; J1790; J2060; J2405; J7030; Q0167

== ENCOUNTER 2021-02-23 21:00 | Emergency (ER) | payer MEDICARE, OTHER ==
[~2021-02-23] VITALS: Ht 157.5 cm; Wt 59.0 kg
[~2021-02-23 21:00] MED LIST changes: +Amlodipine Bes2.5 MG PO; +BENADRYL25 MG PO; +DRON2.5 PO; +FOLI1 PO; +HALOPERIDOL10 M1 PO; +LIDO700A20 TOP; +LOMOTIL 2.5-0.1 EACH PO; +LORA.5 PO; +Lamictal200 MG PO; +MELATONIN5 M1 PO; +MIRALAX11910 PO; +MIRTAZAPINE PO; +ONDA4ODT MM; +PROP10 PO; +QUET300 PO; +SENNA LAXATIVE8.6 MG PO; +Seroquel Xr50 MG PO; +Trihexyphenidyl5 MG PO; +ZYPREXA10 MG IM; +[UNRECOGNIZED DRUG - OTHER] PR; +[UNRECOGNIZED DRUG - OTHER] TOP
[2021-02-23 23:04] LABS: BASOPHILS PERCENT AUTO 0 % (0-2); EOSINOPHILS PERCENT AUTO 0 % (0-6); Hemoglobin 9.1 g/dL (11.5-16.0); IMMATURE GRAN ABSOLUTE AUTO 0.04 K/mm3 (0.00-0.10); IMMATURE GRAN PERCENT AUTO 1 % (0-1); LYMPHOCYTES PERCENT AUTO 17 % (21-46); MONOCYTES ABSOLUTE AUTO 0.74 K/mm3 (0.16-1.47); MONOCYTES PERCENT AUTO 14 % (4-13); Mean Corpuscular HGB Conc 30.3 g/dL (31.5-36.5); Mean Corpuscular Volume 92 fL (80-100); Mean Platelet Volume 9.5 fL (9.1-12.4); NEUTROPHILS ABSOLUTE AUTO 3.69 K/mm3 (1.96-9.15); NEUTROPHILS PERCENT AUTO 69 % (41-73); NRBC ABSOLUTE 0.03 K/mm3 (0.00-0.02); NRBC Auto 0.6 /100 WBC (0.0-0.2); Platelet Count 210 K/mm3 (150-400); RDW Standard Deviation 57.5 fL (35.1-46.3); Red Blood Cell Count 3.25 M/mm3 (3.80-5.20); White Blood Cell Count 5.37 K/mm3 (4.00-11.30)
[2021-02-23 23:18] LABS: Source, Urine Straight Cath
[2021-02-23 23:26] LABS: Alanine Aminotransfer (ALT/SGP 43 U/L (12-78); Albumin, Blood 3.1 g/dL (3.4-5.0); Albumin/Globulin Ratio 0.7 (0.8-1.8); Alk Phos 211 U/L (50-136); Anion Gap 10 mmol/L (6-16); Aspartate Aminotrans (AST/SGOT 67 U/L (12-37); Bilirubin, Total 0.4 mg/dL (0.1-1.0); Blood Urea Nitrogen 63 mg/dL (8-24); Bun/Creatinine Ratio 22.8 (12.0-20.0); CO2, Blood 22 mmol/L (21-32); Calcium, Blood 10.4 mg/dL (8.5-10.1); Chloride, Blood 107 mmol/L (98-108); Creatinine, Blood 2.76 mg/dL (0.40-1.00); Globulin, Blood 4.3 g/dL (2.2-4.0); Glomerular Filtration Rate 17 (60-); Glucose, Blood 137 mg/dL (70-99); Potassium, Blood 4.2 mmol/L (3.5-5.5); Sodium, Blood 139 mmol/L (136-145); Total Protein, Blood 7.4 g/dL (6.4-8.2); Troponin I <0.015 ng/mL (0.000-0.040)
[2021-02-23 23:49] LABS: Appearance, Urine Hazy (Clear); Bilirubin, Urine Neg (Neg); Blood, Urine 1+ (Neg); Color, Urine Yellow (P-Yellow); Glucose Qualitative, Urine Neg (Neg); Ketones, Urine Neg (Neg); Leukocyte Esterase, Urine Neg (Neg); Nitrite, Urine Neg (Neg); Protein, Urine 3+ (Neg); Urobilinogen, Urine NORM (Normal)
[2021-02-24 01:00] LABS: Amorphous Light (0-Heavy); Bacteria Few /hpf; Squamous Epithelial Cells Rare /hpf (Few)
[2021-02-24 01:01] LABS: Hyaline Casts 0-2 /lpf (0-2)
== END 2021-02-24 02:10 | disposition home or self-care (01) ==
LOC: ER 21:00
PROVIDERS: Student in an Organized Health Care Education/Training Program
DX: U07.1 COVID-19 (principal); E86.0 Dehydration; M89.9 Disorder of bone, unspecified; I10 Essential (primary) hypertension; J45.909 Unspecified asthma, uncomplicated; E78.5 Hyperlipidemia, unspecified; Z88.0 Allergy status to penicillin; Z88.2 Allergy status to sulfonamides; Z88.1 Allergy status to other antibiotic agents; Z88.8 Allergy status to other drugs, medicaments and biological substances; Z79.899 Other long term (current) drug therapy; W07.XXXA Fall from chair, initial encounter
CPT/HCPCS: 36415; 51701; 70450; 71045; 72125; 80053; 81001; 83880; 84145; 84484; 85025; 93005; 93010; A9270; J7030

== ENCOUNTER → 2021-03-19 | Outpatient (CLI) | payer MEDICARE, OTHER ==
[2021-03-19 10:30] LABS: Source, Urine Clean Catch
[2021-03-19 12:11] LABS: Bilirubin, Urine Neg (Neg); Blood, Urine Neg (Neg); Glucose Qualitative, Urine Neg (Neg); Ketones, Urine Neg (Neg); Leukocyte Esterase, Urine 1+ (Neg); Nitrite, Urine Neg (Neg); Protein, Urine 1+ (Neg); Specific Gravity, Urine 1.025 (1.003-1.022); Urobilinogen, Urine NORM (Normal)
[2021-03-19 12:24] LABS: Appearance, Urine Clear (Clear); Color, Urine Pale Yellow (P-Yellow)
[2021-03-19 12:25] LABS: Red Blood Cells, Urine 0-2 /hpf (0-2)
[2021-03-19 12:26] LABS: Amorphous Mod (0-Heavy); Bacteria Many /hpf; Granular Casts 0-2 /lpf (0); Hyaline Casts 0-2 /lpf (0-2); Mucus Light (0-Heavy); Squamous Epithelial Cells Few /hpf (Few)
== END ==
LOC: LAB SHORT 08:00 → LAB 08:00
PROVIDERS: Family Medicine
DX: N39.0 Urinary tract infection, site not specified (principal)
CPT/HCPCS: 81001; 87077; 87086; 87186

== ENCOUNTER → 2021-07-16 | Outpatient (CLI) | payer MEDICARE, OTHER ==
[2021-07-16 10:44] LABS: Source, Urine Voided
[2021-07-16 12:38] LABS: Appearance, Urine Clear (Clear); Bilirubin, Urine Neg (Neg); Blood, Urine 5+ (Neg); Color, Urine Yellow (P-Yellow); Glucose Qualitative, Urine Neg (Neg); Ketones, Urine Neg (Neg); Leukocyte Esterase, Urine 1+ (Neg); Nitrite, Urine Neg (Neg); Protein, Urine Neg (Neg); Specific Gravity, Urine 1.015 (1.003-1.022); Urobilinogen, Urine NORM (Normal)
[2021-07-16 13:02] LABS: Bacteria Few /hpf; Squamous Epithelial Cells Few /hpf (Few)
== END | disposition home or self-care (01) ==
LOC: LAB SHORT 10:42
PROVIDERS: Family Medicine
DX: N39.0 Urinary tract infection, site not specified (principal)
CPT/HCPCS: 81001; 87077; 87086; 87186

== ENCOUNTER → 2022-01-19 | Outpatient (CLI) | payer MEDICARE, OTHER ==
[2022-01-19 13:28] LABS: Source, Urine Clean Catch
[2022-01-19 15:48] LABS: Appearance, Urine Turbid (Clear); Bilirubin, Urine Neg (Neg); Blood, Urine Neg (Neg); Color, Urine Yellow (P-Yellow); Glucose Qualitative, Urine Neg (Neg); Ketones, Urine Neg (Neg); Leukocyte Esterase, Urine 2+ (Neg); Nitrite, Urine Neg (Neg); Protein, Urine 1+ (Neg); Urobilinogen, Urine NORM (Normal)
[2022-01-19 16:03] LABS: Amorphous Heavy (0-Heavy); Triple Phosphate Crystals Mod /hpf
[2022-01-19 16:04] LABS: Bacteria Few /hpf; Red Blood Cells, Urine 0-2 /hpf (0-2); Squamous Epithelial Cells Few /hpf (Few)
== END | disposition home or self-care (01) ==
LOC: LAB SHORT 06:00
PROVIDERS: Family Medicine
DX: N39.0 Urinary tract infection, site not specified (principal)
CPT/HCPCS: 81001; 87086

== ENCOUNTER 2022-01-31 10:53 | Emergency (ER) | payer MEDICARE, OTHER ==
[~2022-01-31] VITALS: Ht 165.1 cm; Wt 56.7 kg
[2022-01-31 12:13] LABS: Influenza A, PCR NEGATIVE (NEGATIVE); Influenza B, PCR NEGATIVE (NEGATIVE); Resp Syncytial Virus, PCR NEGATIVE (NEGATIVE); SARS-Cov-2 (COVID-19) PCR, MMC NEGATIVE (NEGATIVE)
[2022-01-31 13:47] LABS: BASOPHILS ABSOLUTE AUTO 0.08 K/mm3 (0.00-0.23); BASOPHILS PERCENT AUTO 1 % (0-2); EOSINOPHILS PERCENT AUTO 0 % (0-6); Hematocrit 35.4 % (33.0-51.0); Hemoglobin 11.5 g/dL (11.5-16.0); IMMATURE GRAN ABSOLUTE AUTO 0.49 K/mm3 (0.00-0.10); IMMATURE GRAN PERCENT AUTO 3 % (0-1); LYMPHOCYTES ABSOLUTE AUTO 2.43 K/mm3 (0.84-5.20); LYMPHOCYTES PERCENT AUTO 15 % (21-46); MONOCYTES ABSOLUTE AUTO 1.18 K/mm3 (0.16-1.47); MONOCYTES PERCENT AUTO 7 % (4-13); Mean Corpuscular HGB 29.8 pg (26.0-34.0); Mean Corpuscular HGB Conc 32.5 g/dL (31.5-36.5); Mean Corpuscular Volume 92 fL (80-100); NEUTROPHILS ABSOLUTE AUTO 12.14 K/mm3 (1.96-9.15); NEUTROPHILS PERCENT AUTO 74 % (41-73); NRBC ABSOLUTE 0.02 K/mm3 (0.00-0.02); NRBC Auto 0.1 /100 WBC (0.0-0.2); Platelet Count 396 K/mm3 (150-400); RDW Coefficient Variation 13.5 % (11.7-14.2); Red Blood Cell Count 3.86 M/mm3 (3.80-5.20); White Blood Cell Count 16.32 K/mm3 (4.00-11.30)
[2022-01-31 14:14] LABS: Albumin, Blood 2.8 g/dL (3.4-5.0); Albumin/Globulin Ratio 0.7 (0.8-1.8); Bilirubin, Total 0.5 mg/dL (0.1-1.0); Bun/Creatinine Ratio 28.7 (12.0-20.0); Creatinine, Blood 1.01 mg/dL (0.40-1.00); Globulin, Blood 4.3 g/dL (2.2-4.0); Magnesium, Blood 1.9 mg/dL (1.6-2.4); Potassium, Blood 3.4 mmol/L (3.5-5.5); Total Protein, Blood 7.1 g/dL (6.4-8.2)
[2022-01-31] MEDS ORDERED: ALBU90OI INH (15:33)
[2022-01-31] MEDS ORDERED: PRED20 PO (15:33)
== END 2022-01-31 16:30 | disposition home or self-care (01) ==
LOC: ER 10:53
PROVIDERS: Student in an Organized Health Care Education/Training Program
DX: J45.901 Unspecified asthma with (acute) exacerbation (principal); J06.9 Acute upper respiratory infection, unspecified; I10 Essential (primary) hypertension; Z88.0 Allergy status to penicillin; Z88.2 Allergy status to sulfonamides; Z88.8 Allergy status to other drugs, medicaments and biological substances; Z79.899 Other long term (current) drug therapy; Z20.822 Contact with and (suspected) exposure to COVID-19
CPT/HCPCS: 0241U; 71046; 80053; 83735; 84145; 85025; 94640; 94664; J2930; J7030

== ENCOUNTER 2022-02-22 03:37 | Inpatient (IN) | payer MEDICARE, OTHER ==
[~2022-02-22] VITALS: Ht 165.1 cm; Wt 58.0 kg
[2022-02-22 04:30] LABS: BASOPHILS ABSOLUTE AUTO 0.03 K/mm3 (0.00-0.23); BASOPHILS PERCENT AUTO 0 % (0-2); EOSINOPHILS PERCENT AUTO 0 % (0-6); Hematocrit 37.3 % (33.0-51.0); Hemoglobin 11.8 g/dL (11.5-16.0); IMMATURE GRAN ABSOLUTE AUTO 0.08 K/mm3 (0.00-0.10); IMMATURE GRAN PERCENT AUTO 1 % (0-1); LYMPHOCYTES ABSOLUTE AUTO 2.06 K/mm3 (0.84-5.20); LYMPHOCYTES PERCENT AUTO 17 % (21-46); MONOCYTES ABSOLUTE AUTO 0.87 K/mm3 (0.16-1.47); MONOCYTES PERCENT AUTO 7 % (4-13); Mean Corpuscular HGB 29.1 pg (26.0-34.0); Mean Corpuscular HGB Conc 31.6 g/dL (31.5-36.5); Mean Corpuscular Volume 92 fL (80-100); Mean Platelet Volume 9.1 fL (9.1-12.4); NEUTROPHILS ABSOLUTE AUTO 9.36 K/mm3 (1.96-9.15); NEUTROPHILS PERCENT AUTO 76 % (41-73); Platelet Count 422 K/mm3 (150-400); RDW Coefficient Variation 14.6 % (11.7-14.2); RDW Standard Deviation 49.1 fL (35.1-46.3); Red Blood Cell Count 4.05 M/mm3 (3.80-5.20)
[2022-02-22 04:48] LABS: Magnesium, Blood 1.5 mg/dL (1.6-2.4)
[2022-02-22 04:51] LABS: Albumin, Blood 2.8 g/dL (3.4-5.0); Albumin/Globulin Ratio 0.7 (0.8-1.8); Bilirubin, Total 0.6 mg/dL (0.1-1.0); Bun/Creatinine Ratio 9.5 (12.0-20.0); Calcium, Blood 9.6 mg/dL (8.5-10.1); Creatinine, Blood 1.16 mg/dL (0.40-1.00); Globulin, Blood 3.9 g/dL (2.2-4.0); Thyroid Stimulating Hormone 1.27 uIU/mL (0.360-4.800); Total Protein, Blood 6.7 g/dL (6.4-8.2)
[2022-02-22 05:12] LABS: Source, Urine Straight Cath
[2022-02-22 05:28] LABS: Appearance, Urine Hazy (Clear); Blood, Urine Neg (Neg); Color, Urine Yellow (P-Yellow); Glucose Qualitative, Urine Neg (Neg); Ketones, Urine 2+ (Neg); Leukocyte Esterase, Urine 1+ (Neg); Nitrite, Urine Pos (Neg); Protein, Urine 3+ (Neg); Specific Gravity, Urine 1.025 (1.003-1.022); Urobilinogen, Urine NORM (Normal)
[2022-02-22 05:40] LABS: Bilirubin, Urine 1+ (Neg)
[2022-02-22 05:43] LABS: Bacteria Many /hpf; Red Blood Cells, Urine 0-2 /hpf (0-2); Squamous Epithelial Cells Mod /hpf (Few)
[2022-02-22] MEDS ORDERED: RISP1 PO (10:18)
[2022-02-22] MEDS ORDERED: BENZ100A PO (10:20)
--- NOTE | 2022-02-22 10:27 | NUR ---
ADMIT NOTE- PT ARRIVED IN PCU. CALLED FACILITY TO UPDATE THE PT MED LIST, AND TALK ABOUT PT LISTED ALLERGIES. PENICILLINS LISTED PT ALLERGY UNCERTAIN OF PT REACTION. PER FACILITY THE PT HAS CHRONIC UTIS, AND IS FREQUENTLY ON KEFLEX FOR THAT. MEDICATIONS ARE UPDATED PER WHAT THE FACILITY HAS BEEN GIVING THE PT. PT CURRENTLY SOMNOLENT, AFTER RECIEVING IV ATIVAN PRIOR TO IMAGING THE PT HAS BEEN LIKE THIS PER REPORT FROM LEGAL AID. WILL CTM. ALL VSS AT THE TIME OF ADMIT.
--- NOTE | 2022-02-22 13:02 | NUR ---
Spoke with cold storage superintendent Nicole and discussed case. Pt significantly somnolant and plan for MRI. Guardian may benefit from discussion regarding Pt's wishes for code status. Pt resting in bed with her eyes closed. Staff in room for plan to transport Pt to imaging. Pt does not wake at this time. Called and spoke with Pt's guardian. Provided update and review of plan of care. Discussed Pt's wishes for code status. Guardian reports Pt is DNR. Spoke with Dr Arora and discussed case. Changed Pt's code status to DNR per V/O from Dr Arora. Palliative Care will remain available for supportive visits and advanced care planning.
--- NOTE | 2022-02-22 15:15 | NUR ---
CALLED DR SUAZO- PT ONLY HAD ONE IV ACCESS, MAG CHILO COMPLETED, POTASSIUM STARTED AFTER THAT WAS COMPLETED. AWARE. OK TO DRAW THE MAG LEVEL NOW CHEM 8 RE-TIMED FOR 30 MINUTES AFTER THE POTASSIUM WILL BE COMPLETED.
--- NOTE | 2022-02-22 17:12 | NUR ---
SHIFT SUMMARY- PT HAS BEEN OBTUNDED SINCE SHE ARRIVED IN PCU FROM THE ED. PALLIATIVE CARE WAS CONSULTED AND PT WAS CHANGED TO A DNR. PLAN IS TO DISCUSS WITH THE PT GUARDIAN ABOUT THE HOSPICE SERVICES AVAILABLE TO THE PT R/T HER METASTATIC DISEASE. PT IS RECIEVING IV POTASSIUM CURRENTLY AND SHE ALREADY RECIEVED IV MAG. PT RESPONDED A LITTLE TO STAFF DURRING HER BED BATH. PLACED HER ON O2 AFTER ARRIVAL HER SATS DROPPED TO 85% ON ROOM AIR. SATS HAVE STAYED AT 93-97% ON 2L VIA NC.
--- NOTE | 2022-02-22 19:29 | NUR ---
Q4 NEURO CHECKS- PT HAS HAD NO CHANGE TO NEURO STATUS. THIS EVENING SHE SEEMS TO HAVE A SMALL AMOUNT OF A GAG REFLEX AND IS TRYING TO CLEAR HER OWN SECRETIONS. PT IS STILL OBTUNDED AND MOSTLY UNRESPONSIVE. SHE DOES RESPOND TO PAINFUL STIMULI (BLOOD DRAWS) WITH A SMALL YELL AND THEN GOES BACK TO SLEEP SOON IT IS OVER. BEDSIDE REPORT COMPLETED WITH NIGHT RN SHE I AWARE.
[2022-02-22 19:46] LABS: Bun/Creatinine Ratio 9.5 (12.0-20.0); Calcium, Blood 9.1 mg/dL (8.5-10.1); Creatinine, Blood 0.95 mg/dL (0.40-1.00); Potassium, Blood 3.9 mmol/L (3.5-5.5)
[2022-02-23 04:49] LABS: Albumin, Blood 2.3 g/dL (3.4-5.0); Albumin/Globulin Ratio 0.7 (0.8-1.8); Bilirubin, Total 0.4 mg/dL (0.1-1.0); Bun/Creatinine Ratio 9.7 (12.0-20.0); Creatinine, Blood 0.93 mg/dL (0.40-1.00); Globulin, Blood 3.4 g/dL (2.2-4.0); Potassium, Blood 3.9 mmol/L (3.5-5.5); Total Protein, Blood 5.7 g/dL (6.4-8.2)
[2022-02-23 04:52] LABS: BASOPHILS ABSOLUTE AUTO 0.03 K/mm3 (0.00-0.23); BASOPHILS PERCENT AUTO 0 % (0-2); EOSINOPHILS PERCENT AUTO 3 % (0-6); Hematocrit 35.5 % (33.0-51.0); Hemoglobin 11.1 g/dL (11.5-16.0); IMMATURE GRAN ABSOLUTE AUTO 0.07 K/mm3 (0.00-0.10); IMMATURE GRAN PERCENT AUTO 1 % (0-1); LYMPHOCYTES ABSOLUTE AUTO 1.68 K/mm3 (0.84-5.20); LYMPHOCYTES PERCENT AUTO 21 % (21-46); MONOCYTES ABSOLUTE AUTO 0.92 K/mm3 (0.16-1.47); MONOCYTES PERCENT AUTO 12 % (4-13); Mean Corpuscular HGB Conc 31.3 g/dL (31.5-36.5); Mean Corpuscular Volume 93 fL (80-100); NEUTROPHILS PERCENT AUTO 63 % (41-73); RDW Coefficient Variation 14.8 % (11.7-14.2); RDW Standard Deviation 50.4 fL (35.1-46.3); Red Blood Cell Count 3.83 M/mm3 (3.80-5.20)
[2022-02-23 04:55] LABS: Mean Platelet Volume 10.1 fL (9.1-12.4)
--- NOTE | 2022-02-23 06:31 | NUR ---
SHIFT SUMMARY ASSUMED CARE OF PT AT 1900. PT VERY WAKE UPON ASSESSMENT. PT WAS ABLE TO BE TITRATED OFF O2. PT ABLE TO SUCTION SELF. PT A/OX2. AFTER THIS NURSE LEFT. PT FELL BACK ASLEEP AND DESATURATED TO 68%. PT WAS PUT BACK ON O2. AFTER WATCHING PT SLEEP, PT WAS HAVING APNIC EPISODES. RT CONSULTED AND WAS WORRIED ABOUT PT AIRWAY TO START CPAP. PT REMAINED ON 2L NC T/O THE REST OF THE NIGHT UNTIL THIS AM WHEN PT AWOKE. PT HAD MOMENTS OF AGGRESSION. THIS NURSE WAS TRYING TO START AN IV WHEN PT SWUNG HER HAND. CHARGE NURSE CALLED IN AND HELPED GET NEW IV. WHEN CHARGE NURSE LEFT PT TOLD THIS NURSE "FUCK YOU" MULTIPLE TIMES. HOTEL ASSISTANT GENERAL MANAGER WAS CALLED INTO ROOM TO HOLD PT HAND AND PT SAID TO THE HOTEL ASSISTANT GENERAL MANAGER "I HATE YOU ALL". AFTER EVERYONE BUT THIS NURSE LEFT ROOM, PT TOLD THIS NURSE ABOUT A DREAM SHE HAD AND FELL BACK ASLEEP. PT WANTING WATER BUT THIS NURSE DOESNT THINK PT CAN AWAKEN LONG ENOUGH TO DRINK YET. PT WAS CONTINENT TO BEDPAN. LUNG SOUNDS DIMINISHED AT BASES. HEART SOUNDS REGULAR.
[2022-02-23 07:13] LABS: Platelet Count 296 K/mm3 (150-400)
--- NOTE | 2022-02-23 07:22 | NUR ---
Bedside report from KRAIG Giang. Pt appears to be sleeping in dimly lit room. Respirations are even, unlabored and spo2 94-97% while on room air. Vital signs are stable. Pt does not awaken during taking of vital signs, but stirs slightly.
--- NOTE | 2022-02-23 09:14 | NUR ---
Pt is apparently sleeping. Stirs without opening eyes to gentle conversation and tactile stimuli. She barely opened eyes but squints closed when attempted to check for pupillary reaction to light. No verbal response. Skin is dry, warm, pink. Bedside telemetry monitoring shows normal sinus rhythm, 80 bpm and spo2 96%. ORal medications unable to give at this time due to somnulence.
--- NOTE | 2022-02-23 09:20 | NUR ---
Repositioned pt with help of SERVICE LINE LAYER. She is now awake, sitting up and asking for breakfast.
--- NOTE | 2022-02-23 09:23 | NUR ---
Refusing oral medications. States, "No pills." Unable to articulate reason. States that she came to the hospital "against my will". Sitting up in bed, eating breakfast. Bed alarm is on.
--- NOTE | 2022-02-23 10:54 | NUR ---
Sister called and is concerned that the pt may have broken her arm and that her tongue is sore and swollen. Sister is also concerned about some neck swelling which she observed yesteday evening when she was here. States that the pt's speech is more slurred than normal as well, probably related to some tongue bruising/swelling which could have occured during her seizure yesterday. Will attempt to get the pt to allow assessment.
--- NOTE | 2022-02-23 14:53 | NUR ---
Pt awakens when spoken to and vital signs taken. Still waiting for imaging to come to do right arm humerus xray. Pt has been sleeping intermittently all morning and this afternoon. Declined lunch, but did eat breakfast.
--- NOTE | 2022-02-23 17:26 | NUR ---
late note: this morning the patient did allow further assessment. Inside her mouth no swelling of the tongue nor bruising was noted. She did have some small cuts on the side of her tongue. Call this evening to her sister Dyana to give her an update on the patient's condition. did give verbal consent for giving Dyana updates.
--- NOTE | 2022-02-24 05:14 | NUR ---
SHIFT SUMMARY 71 YR F ADMITTED ON 02/23/21 FOR SEIZURE LIKE ACTIVITY. FULL CODE. PT WAS TRANSFERED TO MED UNIT FROM PCU EARLY IN THE SHIFT. NO ACUTE CHANGES THIS SHIFT. PT WAS INITIALLY VERBALLY AGGRESSIVE TOWARD NURSING STAFF BUT AFTER SLEEPING FOR AWHILE SHE WOKE UP WITH A BETTER ATTITUDE. SHE ASKED FOR AND RECEIVED SEVERAL SNACKS. SHE HAS HAD NO C/O PAIN OR DISCOMFORT THIS SHIFT. SHE HAD AN INCONTINENT BM AND VOID BUT HAS ALSO BEEN UP TO THE BATHROOM WITH ASSISTANCE.
[2022-02-24 09:35] LABS: BASOPHILS ABSOLUTE AUTO 0.03 K/mm3 (0.00-0.23); BASOPHILS PERCENT AUTO 0 % (0-2); EOSINOPHILS ABSOLUTE AUTO 0.01 K/mm3 (0.00-0.68); EOSINOPHILS PERCENT AUTO 0 % (0-6); Hematocrit 35.5 % (33.0-51.0); IMMATURE GRAN ABSOLUTE AUTO 0.03 K/mm3 (0.00-0.10); IMMATURE GRAN PERCENT AUTO 0 % (0-1); LYMPHOCYTES ABSOLUTE AUTO 2.01 K/mm3 (0.84-5.20); LYMPHOCYTES PERCENT AUTO 23 % (21-46); MONOCYTES PERCENT AUTO 8 % (4-13); Mean Corpuscular HGB 29.3 pg (26.0-34.0); Mean Corpuscular Volume 94 fL (80-100); Mean Platelet Volume 8.9 fL (9.1-12.4); NEUTROPHILS ABSOLUTE AUTO 5.98 K/mm3 (1.96-9.15); NEUTROPHILS PERCENT AUTO 68 % (41-73); Platelet Count 384 K/mm3 (150-400); RDW Coefficient Variation 14.7 % (11.7-14.2); RDW Standard Deviation 51.1 fL (35.1-46.3); Red Blood Cell Count 3.76 M/mm3 (3.80-5.20); White Blood Cell Count 8.76 K/mm3 (4.00-11.30)
[2022-02-24 09:56] LABS: Albumin, Blood 2.4 g/dL (3.4-5.0); Albumin/Globulin Ratio 0.6 (0.8-1.8); Bilirubin, Total 0.3 mg/dL (0.1-1.0); Bun/Creatinine Ratio 12.6 (12.0-20.0); Calcium, Blood 9.3 mg/dL (8.5-10.1); Creatinine, Blood 0.95 mg/dL (0.40-1.00); Potassium, Blood 3.4 mmol/L (3.5-5.5); Total Protein, Blood 6.4 g/dL (6.4-8.2)
--- NOTE | 2022-02-24 18:29 | NUR ---
SHIFT SUMMARY PTN D/C BACK TO [facility] THIS EVENING. TRANSPORT RIDE AND BY WC BACK TO FACILITY. PAPERWORK TO ACCOMPANY TO FACILITY. PTN WAS COOPERATIVE AT TIMES, BUT MANY TIMES CONFUSED AND REFUSING CARE. SHE WAS DEMANDING AT TIMES. SHE DID HAVE SOME LIQUID STOOLS THIS SHIFT, REPORTED TO DR SUAZO WITH PLAN TO WATCH, ALSO WITH KNOWN D/C. PTN TOOK HER PO MEDICATIONS THIS SHIFT WITH SOME COAXING. IV ANTIBIOTICS AND IV ACCESS COMPLETED WITH SOME DIFFICULTY WITH PTN RESISTENT TO CARE. WHEN PTN HEARD SHE WAS LEAVING, SHE TOOK HER CLOTHES OFF, HER ELEVATOR EXAMINER OFF, AND PULLED HER IV OUT. IV WAS IN WHOLE, AND SITE WITHOUT REDNESS OR SWELLLING. PTN TRANSPORTED WITHOUT EVENT.
== END 2022-02-24 18:23 | DRG 100 ==
LOC: ER 03:37 → PCU 08:44 → MEDS 02-23 21:40
PROVIDERS: Student in an Organized Health Care Education/Training Program; ADMIT Internal Medicine
DX: R56.9 Unspecified convulsions (principal); G93.41 Metabolic encephalopathy; J69.0 Pneumonitis due to inhalation of food and vomit; J96.01 Acute respiratory failure with hypoxia; N39.0 Urinary tract infection, site not specified; C79.51 Secondary malignant neoplasm of bone; K21.9 Gastro-esophageal reflux disease without esophagitis; J45.909 Unspecified asthma, uncomplicated; E78.5 Hyperlipidemia, unspecified; F03.90 Unspecified dementia, unspecified severity, without behavioral disturbance, psychotic disturbance, mood disturbance, and anxiety; E87.6 Hypokalemia; I12.9 Hypertensive chronic kidney disease with stage 1 through stage 4 chronic kidney disease, or unspecified chronic kidney disease; E83.42 Hypomagnesemia; F25.0 Schizoaffective disorder, bipolar type; N18.30 Chronic kidney disease, stage 3 unspecified; B96.20 Unspecified Escherichia coli [E. coli] as the cause of diseases classified elsewhere; G31.89 Other specified degenerative diseases of nervous system; Z88.0 Allergy status to penicillin; Z88.2 Allergy status to sulfonamides; Z88.8 Allergy status to other drugs, medicaments and biological substances; Z85.3 Personal history of malignant neoplasm of breast; Z92.21 Personal history of antineoplastic chemotherapy; Z98.890 Other specified postprocedural states; Z79.899 Other long term (current) drug therapy; Z79.51 Long term (current) use of inhaled steroids; Z79.52 Long term (current) use of systemic steroids
CPT/HCPCS: 36415; 70450; 70551; 71045; 73060; 80048; 80053; 81001; 82947; 83605; 83735; 84443; 85025; 87077; 87086; 87186; 94760; 94762; 96365; 96366; 96367; 96375; 99285-25; A9270; J0456; J0696; J1650; J1953; J2060; J3475; J3480; J7030; J7050; P9612; Q0167

== ENCOUNTER → 2022-03-15 | Outpatient (CLI) | payer MEDICARE, OTHER ==
[~2022-03-15] MED LIST changes: +RISP1 PO
[2022-03-15 11:04] LABS: Source, Urine Voided
[2022-03-15 12:28] LABS: Bilirubin, Urine Neg (Neg); Blood, Urine Neg (Neg); Color, Urine Yellow (P-Yellow); Glucose Qualitative, Urine Neg (Neg); Ketones, Urine Neg (Neg); Leukocyte Esterase, Urine Neg (Neg); Nitrite, Urine Neg (Neg); Protein, Urine 1+ (Neg); Specific Gravity, Urine 1.025 (1.003-1.022); Urobilinogen, Urine NORM (Normal)
[2022-03-15 12:38] LABS: Appearance, Urine Hazy (Clear); Bacteria Rare /hpf; Red Blood Cells, Urine 0-2 /hpf (0-2); Squamous Epithelial Cells Mod /hpf (Few); White Blood Cells, Urine 0-2 /hpf (0-5)
== END | disposition home or self-care (01) ==
LOC: LAB 06:30 → LAB SHORT 06:30
PROVIDERS: Family Medicine
DX: N39.0 Urinary tract infection, site not specified (principal); D72.829 Elevated white blood cell count, unspecified
CPT/HCPCS: 81015; 87086

== ENCOUNTER 2022-04-15 22:19 | Emergency (ER) | payer MEDICARE, OTHER ==
[~2022-04-15] VITALS: Ht 162.6 cm; Wt 54.4 kg
[2022-04-15] MEDS ORDERED: LEVE500 PO (22:31)
== END 2022-04-16 02:46 | disposition home or self-care (01) ==
LOC: ER 22:19
DX: R04.2 Hemoptysis (principal); F25.9 Schizoaffective disorder, unspecified; F03.90 Unspecified dementia, unspecified severity, without behavioral disturbance, psychotic disturbance, mood disturbance, and anxiety; R45.1 Restlessness and agitation; I10 Essential (primary) hypertension; J45.909 Unspecified asthma, uncomplicated; Z88.0 Allergy status to penicillin; Z88.1 Allergy status to other antibiotic agents; Z88.2 Allergy status to sulfonamides; Z79.899 Other long term (current) drug therapy
CPT/HCPCS: 71045; 99283-25